=== PATIENT | male | born 1940 | race Caucasian/White ===

== ENCOUNTER → 2016-06-22 | Outpatient (CLI) | payer OTHER ==
[~2016-06-22] MED LIST: ASPI81TA28 PO; ATOR10TA88 PO; FINA5TAB PO; FLUO1TAB12 PO; GLUCTAB7 PO; LOSA1TAB PO; LOSA1TAB38 PO; METO25TA3 PO; METO25TA56 PO; OMEG10007 PO; OXYC-57 PO
== END | disposition home or self-care (01) ==
LOC: C.LAB 10:02
PROVIDERS: ATTEND Urology
DX: Z00.00 Encounter for general adult medical examination without abnormal findings (principal); R97.20 Elevated prostate specific antigen [PSA]

== ENCOUNTER 2016-07-07 05:11 | Day surgery (SDC) | payer OTHER ==
[2016-06-26 14:37] VITALS: BMI 25.0
--- NOTE | 2016-06-26 15:04 | PAT Medication Instructions ---
Service Date Jun 26, 2016. Current Home Medication List Aspirin (Aspirin Ec), 81 MG PO Q2D Atorvastatin (Lipitor), 10 MG PO QAM Finasteride (Proscar), 5 MG PO QAM Fish Oil ([place]-3), 1,200 MG PO QAM Tsipkiqckds-Jwejpuchooo-Ozx C- (Glucosamine Chondroitin), 1,000 MG PO QAM Losartan Potassium (Cozaar), 25 MG PO QAM Metoprolol Succinate (Toprol Xl), 25 MG PO QAM Medication Instructions For Your Scheduled Surgery - Check with surgeon/physics faculty member for instructions: Aspirin (Aspirin Ec), 81 MG PO Q2D (okay to continue per surgeon) - Hold the following medications starting 06/27/2016: Fish Oil ([place]-3), 1,200 MG PO QAM Ibwldmbyyoc-Zfqurvyrjuk-Yed C- (Glucosamine Chondroitin), 1,000 MG PO QAM - Hold the following medications the morning of surgery: Losartan Potassium (Cozaar), 25 MG PO QAM Finasteride (Proscar), 5 MG PO QAM - Take the following medications the morning of surgery with a sip of water: Metoprolol Succinate (Toprol Xl), 25 MG PO QAM Atorvastatin (Lipitor), 10 MG PO QAM If you have any questions please call us at [phone] (Awa Randolph PA-C) or [phone] or [phone]
--- NOTE | 2016-06-26 15:38 | DIAGNOSTIC IMAGING REPORT ---
CHEST PREADMISSION(PA/LAT) CLINICAL HISTORY: Preoperative evaluation. COMPARISON STUDY: Chest radiograph May 18, 2015. FINDINGS: Lung volumes are normal. There is no consolidation to suggest pneumonia. There is no pneumothorax or pleural effusion. Nodular densities projecting over the lower lungs likely reflect nipple shadows. Borderline cardiomegaly is unchanged. There is no evidence of pulmonary edema. IMPRESSION: 1. No acute findings. 2. Nodular densities projecting over each lower lung which likely reflect nipple shadows. However, follow-up PA and shallow oblique radiographs of the chest with nipple markers are recommended for confirmation. Electronically signed by: Keanu Altman M.D. 06/26/2016 3:36 PM Dictated Date/Time: 06/26/2016 3:34 PM
[2016-06-26 16:07] LABS: BASO % 0.3 %; BASO ABS # 0.03 K/uL (0-0.2); COMPLETE YES; EOS % 5.4 %; HEMATOCRIT 44.8 % (42-52); IG% 0.3 %; LYMPH % 20.9 %; LYMPH ABS # 1.89 K/uL (1.2-3.4); MEAN CELL VOLUME 90.1 fL (80-100); MEAN CORPUSCULAR HGB CONC 34.4 g/dl (32-36); MEAN PLATELET VOLUME 10.9 fL (7.4-10.4); MONO % 14.2 %; NEUT % 58.9 %; PLATELET COUNT 213 K/uL (130-400); RED BLOOD COUNT 4.97 M/uL (4.7-6.1); WHITE BLOOD COUNT 9.06 K/uL (4.8-10.8)
[2016-06-26 16:38] LABS: BUN/CREATININE RATIO 13.9 (10-20); CALCIUM 8.9 mg/dl (8.5-10.1); CREATININE 1.2 mg/dl (0.60-1.40); POTASSIUM 4.1 mmol/L (3.5-5.1)
[2016-07-07] VITALS (8 sets, daily range): BP systolic 117–178; BP diastolic 49–74; PULSE 51–76; TEMP 36.4–36.9; O2SAT 94–97; Ht 177.8 cm; Wt 81.3 kg
[~2016-07-07] VITALS: Ht 177.8 cm; Wt 81.3 kg
[~2016-07-07 05:11] MED LIST changes: +ATOR10TA82 PO; -ATOR10TA88 PO; -FLUO1TAB12 PO; -LOSA1TAB38 PO; -METO25TA56 PO; -OXYC-57 PO
[2016-07-07] MEDS ORDERED: LACTATED RINGER'S 1000ML 1,000 ML IV SCH ×2 (06:00→07:58)
--- NOTE | 2016-07-07 06:18 | History & Physical Bridge Note ---
H&P Re-Evaluation Bridge Note: I have examined the patient, reviewed the History & Physical and in the interval since the performance of the History & Physical I have noted the following changes of clinical significance: No changes noted pt marked, pt family will be here later
[2016-07-07] MEDS ORDERED: FENTANYL CITRATE INJ 50 MCG/1 ML 2 ML VIAL ONE (06:26)
[2016-07-07] MEDS ORDERED: LIDOCAINE HCL 2% 2 ML VIAL (20MG/ML) ONE ×2 (06:26→07:21)
[2016-07-07] MEDS ORDERED: PROPOFOL IV EMULSION 10 MG/ML 20 ML VIAL IV ONE ×2 (06:26→07:15)
[2016-07-07] MEDS ORDERED: MIDAZOLAM HCL 1 MG/ML 2ML VIAL ONE (06:26)
[2016-07-07] MEDS ORDERED: ONDANSETRON INJ 2 MG/ML 2 ML VIAL ONE (06:26)
[2016-07-07] MEDS ORDERED: DEXAMETHASONE SOD INJ 4 MG/ML VIAL ONE (06:26)
[2016-07-07] MEDS ORDERED: WATER, STERILE FOR INJ 10 ML VIAL ONE (06:35)
[2016-07-07] MEDS ORDERED: BUPIVACAINE 0.5 % 5 MG/1 ML MPF 30ML VIAL ONE (06:44)
[2016-07-07] MEDS ORDERED: BACITRACIN 50000 UNIT VIAL ONE (06:45)
[2016-07-07] MEDS ORDERED: METOPROLOL TARTRATE 1 MG/ML VIAL ONE (06:49)
[2016-07-07] MEDS ORDERED: CEFAZOLIN SOD 1 GM VIAL ONE (06:57)
[2016-07-07] MEDS ORDERED: EpHEDrine SULFATE 50MG/5ML SYR ONE (07:21)
[2016-07-07] MEDS ORDERED: ROCURONIUM BROMIDE 10 MG/ML 5 ML VIAL ONE (07:25)
[2016-07-07] MEDS ORDERED: GLYCOPYRROLATE INJ 0.2 MG/ML VIAL ONE (07:25)
[2016-07-07] MEDS ORDERED: NEOSTIGMINE METHYLSULFATE 5 MG/5 ML SYR ONE (07:25)
[2016-07-07] MEDS ORDERED: LACTATED RINGER'S 1000ML 1,000 ML IV PRN (07:42)
[2016-07-07] MEDS ORDERED: ONDANSETRON INJ 2 MG/ML 2 ML VIAL IV PRN ×2 (07:45→08:00)
[2016-07-07] MEDS ORDERED: FENTANYL CITRATE INJ 50 MCG/1 ML 2 ML VIAL IV PRN (07:45)
--- NOTE | 2016-07-07 07:54 | [facility] Post Operative Brief Note ---
Immediate Operative Summary Operative Date Jul 07, 2016. Pre-Operative Diagnosis left inguinal hernia Post-Operative Diagnosis left direct ing hernia and ? neuroma ileo inguinal nerve Procedure(s) Performed Left Open direct Inguinal Hernia Repair with Mesh(marlex) and excision ? neuroma Surgeon Dr. Woodward Dining Room Tables Set Up Attendant Surgeon(s) Julio Cesar Josue PA-C Estimated Blood Loss 3.5mL Findings large direct defect and clyde 1cm semi hard mass adjacent to ileoinguinal nerve Specimens A: possible neuroma from illeal inguinal nerve
[2016-07-07] MEDS ORDERED: OXYC-57 PO ×2 (07:55→08:06)
--- NOTE | 2016-07-07 07:58 | Discharge Instructions ---
Discharge Instructions Date of Service Jul 07, 2016. Visit Reason for Visit: Left Inguinal Hernia Discharge Discharge Diagnosis / Problem: left inguinal hernia repair with mesh Discharge Goals Goal(s): Decrease discomfort Activity Recommendations Activity Limitations: as noted below Lifting Limitations: no more than 10 pounds Shower/Bathe: tomorrow Driving or Machine Use: resume 3 days after discharge (if not taking Percocet) Anesthesia . Post Anesthesia Instructions: If you have had General Anesthesia or IV Sedation: * Do not drive today. * Resume driving when surgeon permits. * Do not make important decisions or sign legal documents today. * Call surgeon for: 1. Temperature elevations greater than 101 degrees F. 2. Uncontrollable pain. 3. Excessive bleeding. 4. Persistent nausea and vomiting. 5. Medication intolerance (nausea, vomiting or rash). * For nausea and vomiting use only clear liquids such as: tea, soda, bouillon until nausea subsides, then gradually increase diet as tolerated. * If you have any concerns or questions, call your surgeon's office. If physician is unavailable and it is an emergency, call 911 or go to the nearest emergency room. . Instructions / Follow-Up Instructions / Follow-Up Dr. Woodward in 1 week, call [phone] if you do not already have an appt or for any questions Ice left groin off and on alternating every 20 minutes until bedtime Diet Recommendations Recommended Home Diet: no limitations Procedures Procedures Performed: Left Open direct Inguinal Hernia Repair with Mesh(marlex) and excision ? neuroma Pending Studies Studies pending at discharge: no Medical Emergencies . Who to Call and When: Medical Emergencies: If at any time you feel your situation is an emergency, please call 911 immediately. . Non-Emergent Contact Non-Emergency issues call your: Surgeon Call Non-Emergent contact if: you have a fever, temperature is above 101.5, your pain is not controlled, wound has increased redness . . "Provider Documentation" section prepared by Julio Cesar Josue.
[2016-07-07] MEDS ORDERED: OXYCODONE/ACETAMINOPHEN 5-325 TAB PO PRN (08:00)
[2016-07-07] MEDS ORDERED: MoRPHine SULFATE 2 MG/ML CARP IV PRN (08:00)
--- NOTE | 2016-07-07 08:32 | Anesthesiology Progress Note ---
Anesthesia Post Op Note Date & Time Jul 07, 2016 at 08:30 Vital Signs Pain Intensity: 0 Vital Signs Past 12 Hours Date Time Temp Pulse Resp B/P Pulse Ox O2 Delivery O2 Flow Rate FiO2 07/07/16 08:25 62 16 129/62 98 Room Air 07/07/16 08:15 61 16 128/60 100 Mask 10 07/07/16 08:05 65 16 130/65 100 Mask 10 07/07/16 07:58 36.7 80 16 155/69 100 Mask 10 07/07/16 05:48 36.9 59 18 134/64 95 Room Air Notes Mental Status: alert / awake / arousable, participated in evaluation Pt Amnestic to Procedure: Yes Nausea / Vomiting: adequately controlled Pain: adequately controlled Airway Patency, RR, SpO2: stable & adequate BP & HR: stable & adequate Hydration State: stable & adequate Anesthetic Complications: no major complications apparent Pt doing well. He says he feels a little hoarse (which I reassured him is normal ) but otherwise well.
--- NOTE | 2016-07-07 09:28 | OPERATIVE REPORT ---
DATE OF OPERATION: 07/07/2016 SURGEON: Kashmir Woodward MD PROTOTYPE SPECIAL BUILD: Julio Cesar Josue PA-C PREOPERATIVE DIAGNOSIS: Left inguinal hernia. 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 PROCEDURE: Left direct inguinal hernia repair with Marlex mesh tension free and excision of 1 cm mass along the ilioinguinal nerve, questionable neuroma. DESCRIPTION OF PROCEDURE: The patient was brought into the operating room theater under general anesthesia and the left lower quadrant was prepped with Betadine scrubbing solution and properly draped. A 0.5% Marcaine without epinephrine was used to infiltrate the skin wheel 2 fingerbreadths medial anterior superior iliac crest and more local was used subfascially to the external oblique. An incision was made parallel to the external oblique deep to the inguinal ligament, deepened through subcutaneous tissue. Some larger venous plexus were ligated with 2-0 silk. We went onto the external oblique were more local was used and we opened the external oblique along the course of its fibers of the external ring. As we elevated hemostats, were able to identify a significant amount of scar tissue of the external ring. We identified the ilioinguinal nerve and it seemed to be having a neuroma just adjacent to it about almost a centimeter mass. It was hard to tell if it was a neuroma from that or just a scar tissue, but we would excise this and sent it separately. The nerve was left intact. We then elevated the cord and its structures and identified a significant direct hernia. We freed that up from the cord structures, placed the cord over a Lupton drain. We then inspected the floor. There was another nerve coming adjacent superiorly and whether or not it was iliohypogastric as a fine band we avoided it. We used 3 interrupted silk sutures. We approximated some fibers of the transversalis fascia to reduce this protuberances of the direct area which extended into the field about 5-6 cm throughout the whole area. This just to get it out away, we identified easily the inferior epigastric vessels and there was no indirect hernia or lipoma. At this point, a sheet of Marlex mesh was then brought up on the field and onlaid. It sutured around the symphysis pubis, shelving portion of the inguinal ligament above the conjoined tendon to reconstruct the internal ring after we placed the 2 nerves along the cord structures that could only accommodate the tip of a hemostat. More local was used and antibiotic topically. When hemostasis was satisfactory, we then closed the external oblique on top of the cord and the mesh completely exteriorizing the mesh from subcutaneous tissue and subQ was closed with 0 Dexon and nina for skin edges. Dressing was applied. The procedure was tolerated well by the patient. Estimated blood loss was approximately 3.5 mL. The patient was taken to recovery room in good condition. I attest to the content of the Intraoperative Record and any orders documented therein. Any exceptio ns are noted below.
== END 2016-07-07 15:35 | disposition home or self-care (01) ==
LOC: C.ACU 05:11
PROVIDERS: ATTEND Surgery
DX: K40.90 Unilateral inguinal hernia, without obstruction or gangrene, not specified as recurrent (principal); I10 Essential (primary) hypertension; I71.4 Abdominal aortic aneurysm, without rupture; F17.200 Nicotine dependence, unspecified, uncomplicated; E78.00 Pure hypercholesterolemia, unspecified; Z79.899 Other long term (current) drug therapy; Z79.82 Long term (current) use of aspirin; Z90.89 Acquired absence of other organs; Z98.42 Cataract extraction status, left eye; Z98.890 Other specified postprocedural states; Z85.828 Personal history of other malignant neoplasm of skin; Z68.25 Body mass index [BMI] 25.0-25.9, adult; Z84.1 Family history of disorders of kidney and ureter; Z82.49 Family history of ischemic heart disease and other diseases of the circulatory system; Z82.0 Family history of epilepsy and other diseases of the nervous system; Z83.3 Family history of diabetes mellitus

== ENCOUNTER → 2016-08-04 | Outpatient (CLI) | payer OTHER ==
[~2016-08-04] MED LIST changes: +OXYC-57 PO
[2016-08-04 13:24] LABS: BLOOD UREA NITROGEN 17 mg/dl (7-18); BUN/CREATININE RATIO 15.3 (10-20)
== END | disposition home or self-care (01) ==
LOC: C.LAB 10:52
PROVIDERS: ATTEND Urology
DX: R97.20 Elevated prostate specific antigen [PSA] (principal)

== ENCOUNTER → 2016-08-27 | Outpatient (CLI) | payer OTHER | END | disposition home or self-care (01) | LOC: C.LABSPEC 17:10 | PROVIDERS: ATTEND Urology | DX: N40.1 Benign prostatic hyperplasia with lower urinary tract symptoms (principal); R31.0 Gross hematuria ==

== ENCOUNTER → 2016-09-08 | Outpatient (CLI) | payer OTHER | END | disposition home or self-care (01) | LOC: C.LAB 10:44 | PROVIDERS: ATTEND Nurse Practitioner Family | DX: N39.0 Urinary tract infection, site not specified (principal) ==

== ENCOUNTER → 2016-10-12 | Outpatient (CLI) | payer OTHER ==
[~2016-10-12] MED LIST changes: -ATOR10TA82 PO; +ATOR10TA88 PO
== END | disposition home or self-care (01) ==
LOC: C.LAB 11:24
PROVIDERS: ATTEND Urology
DX: R33.9 Retention of urine, unspecified (principal); N39.0 Urinary tract infection, site not specified

== ENCOUNTER → 2016-12-01 | Outpatient (CLI) | payer OTHER | END | disposition home or self-care (01) | LOC: C.LAB 09:35 | PROVIDERS: ATTEND Urology | DX: R31.0 Gross hematuria (principal); N39.0 Urinary tract infection, site not specified ==

== ENCOUNTER → 2017-03-11 | Outpatient (CLI) | payer OTHER ==
[~2017-03-11] MED LIST changes: +ATOR10TA82 PO; -ATOR10TA88 PO; -OXYC-57 PO
== END | disposition home or self-care (01) ==
LOC: C.LAB 12:58
PROVIDERS: ATTEND Urology
DX: N40.1 Benign prostatic hyperplasia with lower urinary tract symptoms (principal); R33.9 Retention of urine, unspecified

== ENCOUNTER 2017-04-01 17:10 | Emergency (ER) | payer OTHER ==
[~2017-04-01] VITALS: Ht 177.8 cm; Wt 83.3 kg
[~2017-04-01 17:10] MED LIST changes: -ASPI81TA28 PO; -GLUCTAB7 PO; -METO25TA3 PO; -OMEG10007 PO
[2017-04-01 17:36] VITALS: BP 152/74; TEMP 36.5; Ht 177.8 cm; Wt 83.3 kg
[2017-04-01] MEDS ORDERED: GELATIN SPONGE 12-7MM EXT STA (17:50)
--- NOTE | 2017-04-01 18:06 | EMERGENCY ROOM VISIT NOTE ---
ED Visit Note First contact with patient: 17:38 Patient seen and examined at bedside after discussion with the physician hearing and speech assistant. No recurrent bleeding of the right earlobe. Scuffs with patient symptoms watch and return for, he verbalized understanding was agreeable with plan.
--- NOTE | 2017-04-01 18:30 | EMERGENCY ROOM VISIT NOTE ---
ED Visit Note First contact with patient: 17:38 Chief Complaint:"lacerated L ear shaving" History of Present Illness: This patient is a 76 year old male who presents to the Emergency Department via private vehicle with male for evaluation of their left ear lobe laceration. Patient sustained the laceration while shaving today. They report a moderate amount of bleeding initially. He believes his tetanus is up-to-date. He notes no dizziness or feeling as though he is going to pass out. He could not get the bleeding to stop therefore propping his visit here today. This occurred 1.5 hours prior to arrival. Medications: As noted below Allergies: Scallops PMH: No pertinent SHx: Patient lives locally. ROS: All pertinent positive and negative review of systems are appropriately documented in the History of Present Illness. Physical Exam: VITAL SIGNS - Vital signs and nursing notes were reviewed. Hypertensive. GENERAL -76-year-old male appearing his stated age who is in no acute distress. Communicates well with provider and answers questions appropriately. SKIN - There is a punctate skin avulsion noted to the left ear lobe. No suturable ailment. ED Course: Patient was seen and evaluated by myself. Risks and benefits of performing primary wound closure versus no repair were discussed with the patient who verbalizes understanding. Gelfoam was initially applied without hemostasis. Then after gently clean the area I did apply Dermabond. This achieved hemostasis. He was observed for one half hour and there was no continued bleeding. He appears stable for outpatient management. He was educated upon management, educated upon worrisome symptoms which to return, had questions and provided discharge, and was discharged home in good condition. BP high. I believe to be situational. Med list reviewed. Problem List Medical Problems: (1) Aortic insufficiency Status: Chronic Current/Historical Medications Scheduled Aspirin (Aspirin Ec), 81 MG PO Q2D Atorvastatin (Lipitor), 10 MG PO QAM Finasteride (Proscar), 5 MG PO QAM Fish Oil (Cap[place]-3), 1,200 MG PO QAM Esvlwbkxguu-Pysadtnfrda-Atq C- (Glucosamine Chondroitin), 1,000 MG PO QAM Losartan Potassium (Losartan Potassium), 50 MG PO DAILY Metoprolol Succinate (Toprol Xl), 25 MG PO QAM Allergies Coded Allergies: NO KNOWN DRUG ALLERGIES (Verified Allergy, Unknown, NONE, 07/07/16) Scallop (Verified Allergy, Unknown, NAUSEA AND VOMITING, 1/4/18) Vital Signs Date Time Temp Pulse Resp B/P (MAP) Pulse Ox O2 Delivery O2 Flow Rate FiO2 04/01/17 18:37 63 18 95 04/01/17 17:36 36.5 68 16 152/74 98 Room Air Medications Administered Medications (Trade) Dose Ordered Sig/Byron Route Start Time Stop Time Status Last Admin Dose Admin Gelatin (Surgifoam Sponge 12-7MM (SMALL)) 1 ea NOW STAT EXT 04/01/17 17:50 04/01/17 17:51 DC 04/01/17 17:50 1 EA Departure Information Impression Primary Impression: Laceration Dispostion Home / Self-Care Condition GOOD Referrals No Doctor, Assigned (PCP) Patient Instructions My [facility] Additional Instructions Discharge Instructions: You may shower with the glue but please do not submerge in water until healed ( 7 days) Look for signs of infection of the wound including: increased pain, swelling, foul discharge, streaking, or increased temperature. If any of these are noticed you should return to the Emergency Department for further assessment and treatment. As with any laceration you may have received nerve damage to the surrounding tissues. This damage may or may not be permanent. You should keep the area covered with sunscreen for the first 6 months to 1 year when at risk for exposure to help minimize scarring. You can also use scar reducing creams or Vitamin E oil to help minimize scarring. Return to the emergency department if your symptoms worsen despite treatment course outlined above.
[2017-04-01 18:37] VITALS: PULSE 63; O2SAT 95
[2017-08-23] MEDS ORDERED: ASPI81TA28 PO (14:26)
[2017-08-23] MEDS ORDERED: METO25TA4 PO (14:35)
[2017-08-23] MEDS ORDERED: OMEG10007 PO (14:35)
[2017-08-23] MEDS ORDERED: CZR50 PO (18:13)
[2017-08-23] MEDS ORDERED: PRS5 PO (19:11)
[2017-08-23] MEDS ORDERED: LPT10 PO (19:11)
[2017-08-23] MEDS ORDERED: GLUCTAB7 PO (19:44)
== END 2017-04-01 18:38 | disposition home or self-care (01) ==
LOC: C.EDB 17:11 → C.EDD 18:38
DX: S01.312A Laceration without foreign body of left ear, initial encounter (principal); W45.8XXA Other foreign body or object entering through skin, initial encounter; I35.1 Nonrheumatic aortic (valve) insufficiency; Z79.82 Long term (current) use of aspirin; Z79.899 Other long term (current) drug therapy; Z91.018 Allergy to other foods

== ENCOUNTER → 2017-04-06 | Outpatient (CLI) | payer OTHER ==
[~2017-04-06] MED LIST changes: +ASPI81TA28 PO; +CZR50 PO; +GLUCTAB7 PO; -LOSA1TAB PO; +METO25TA3 PO; +OMEG10007 PO
== END | disposition home or self-care (01) ==
LOC: C.LABSPEC 11:04
PROVIDERS: ATTEND Urology
DX: N39.0 Urinary tract infection, site not specified (principal); R33.9 Retention of urine, unspecified

== ENCOUNTER → 2017-07-02 | Outpatient (CLI) | payer OTHER ==
[~2017-07-02] MED LIST changes: -METO25TA3 PO; +METO25TA4 PO
[2017-07-02 10:08] LABS: BLOOD UREA NITROGEN 19 mg/dl (7-18); CARBON DIOXIDE 30 mmol/L (21-32); GLUCOSE 77 mg/dl (70-99); POTASSIUM 4.2 mmol/L (3.5-5.1); SODIUM 137 mmol/L (136-145)
[2017-07-02 10:11] LABS: CHOLESTEROL 158 mg/dl (0-200); LDL CHOLESTEROL CALCULATED 87 mg/dl
== END | disposition home or self-care (01) ==
LOC: C.LAB 08:56
PROVIDERS: ATTEND Student in an Organized Health Care Education/Training Program
DX: E78.5 Hyperlipidemia, unspecified (principal); I25.10 Atherosclerotic heart disease of native coronary artery without angina pectoris; I10 Essential (primary) hypertension; R82.71 Bacteriuria

== ENCOUNTER 2021-05-21 05:53 | Inpatient (IN) ==
--- NOTE | 2021-05-15 11:51 | PAT Medication Instructions ---
Medication Instructions Date of Service May 15, 2021 Home Medications atorvastatin 40 mg tablet 40 mg PO HS losartan 50 mg tablet 12.5 mg PO QAM metoprolol succinate 25 mg tablet,extended release 24 hr 25 mg PO QPM hydroxyzine HCl 25 mg tablet 25 - 50 mg PO Q8H PRN paroxetine HCl 10 mg tablet 5 mg PO HS acetaminophen 500 mg tablet 500 mg PO Q6H PRN amlodipine 5 mg tablet 5 mg PO QPM DO NOT take the morning of surgery losartan 50 mg tablet 12.5 mg PO QAM Take morning of surgery With a small sip of water, OTHERWISE NOTHING TO EAT OR DRINK AFTER MIDNIGHT: hydroxyzine HCl 25 mg tablet 25 - 50 mg PO Q8H PRN(if needed) acetaminophen 500 mg tablet 500 mg PO Q6H PRN(okay to take up to 4 hours prior to surgery if needed) Take evening before surgery atorvastatin 40 mg tablet 40 mg PO HS metoprolol succinate 25 mg tablet,extended release 24 hr 25 mg PO QPM hydroxyzine HCl 25 mg tablet 25 - 50 mg PO Q8H PRN(if needed) paroxetine HCl 10 mg tablet 5 mg PO HS acetaminophen 500 mg tablet 500 mg PO Q6H PRN(if needed) amlodipine 5 mg tablet 5 mg PO QPM Other Notes If you have any questions please call us at [phone] or [phone] or [phone] or [phone]
--- NOTE | 2021-05-19 09:10 | Anesthesiology Consultation ---
Date of Service May 19, 2021 Assessment & Plan (1) Encounter for pre-operative examination: - Case discussed with Dr. Mariee who advised patient is acceptable risk to proceed with surgery. - COVID screening: Per assessment on 05/19/2021: Travel screen negative, no known COVID-19 positive contacts or current COVID-19 related symptoms in past 2 weeks. Patient vaccinated. COVID test obtained at PAT appointment today. Chart Review Chart Review: Acceptable Risk for Surgery and Patient seen in Pre Admission Testing Teaching & Discussion Pre-Anesthesia Teaching/Discussion Notes: Instructed NPO after midnight before surgery, except medications with 15 cc of water. Medication instructions provided according to the [facility] guidelines. History Surgery Operation Date: 05/21/21 07:30 Proposed Procedures p Percutaneous Endovascular Aneurysm Repair - Michael Buchanan MD Height/Weight Height: 5 ft 9 in Weight: 79.2 kg Allergies Allergy/AdvReac Type Severity Reaction Status Date / Time No Known Drug Allergies Allergy Unknown NONE Verified 05/14/21 11:08 scallops AdvReac Unknown NAUSEA AND Verified 05/14/21 11:08 VOMITING Medications Home Medications Medication Instructions Recorded Confirmed Last Taken atorvastatin 40 mg tablet 40 mg PO HS 05/09/18 05/14/21 11/24/19 losartan 50 mg tablet 12.5 mg PO QAM 05/09/18 05/14/21 11/24/19 metoprolol succinate 25 mg 25 mg PO QPM 05/09/18 05/14/21 11/25/19 tablet,extended release 24 hr hydroxyzine HCl 25 mg tablet 25 - 50 mg PO Q8H PRN 11/25/19 05/14/21 11/23/19 paroxetine HCl 10 mg tablet 5 mg PO HS 11/25/19 05/14/21 11/24/19 acetaminophen 500 mg tablet 500 mg PO Q6H PRN 05/14/21 05/14/21 Unknown amlodipine 5 mg tablet 5 mg PO QPM 05/14/21 05/14/21 Unknown Past Medical History Medical History (Updated 05/19/21 @ 15:22 by Elodia Burgess PA-C) Abdominal aortic aneurysm 5.1x5.8 cm Aortic insufficiency 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 Exercise / Class Metabolic Activity II 4-5 Yardwork/Stairs/Walk up hill (denies CP or SOB with 1 FOS) Past Family History Family History Mother Family history of diabetes mellitus Past Surgical History Surgical History 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 05/12/2018: Grade 1 view, MAC#3, ETT#8.0. No postop issues per anesthesia progress note. History of open reduction and internal fixation (ORIF) procedure LEFT SHOULDER Hx of transurethral resection of prostate WITH LASER Past Anesthesia History No Hx of Anesthesia Complications and No Family Hx of Anesthesia Complications History of PONV No Hx of PONV and No Hx of Motion Sickness Social History Smoking Status: Current every day smoker tobacco type: cigars Smoking cigarettes per day: SMALL CIGARS 5 PER DAY Do You Dip or Chew Tobacco: No Hx Alcohol Use: Yes Alcohol type: beer Alcohol Intake Frequency Comment: 1 X A MONTH Hx Substance Use: No substance use type: does not use Review of Systems Rare, chronic, palpitations, denies change or worsening. Patient denies chest pain, shortness of breath, dyspnea on exertion, snoring, witnessed apneas, reflux, fever, chills, cough, or wheezing. Physical Exam Vital Signs Vitals BP 154/61 P 57 TEMP 98.0 SP02 98% on RA RESP 17 Physical Full cervical extension range of motion without pain Full TMJ range of motion TMD 3.5 finger breaths Mallampati Score 3 Dentition: intact, partial-upper sides bilat; denies chipped or loose teeth Lungs: normal respiratory effort. Clear throughout to auscultation, no adventitious breath sounds Cardiac: regular rate and rhythm, no murmurs noted Carotid arteries: negative bruit bilat Extremities: no distal extremity edema Lab Results Anesthesia Preop Results Results Anesthesia Widget: WBC 7.28 K/uL (4.8-10.8) 05/19/21 Hgb 14.4 g/dL (14.0-18.0) 05/19/21 Hct 43.4 % (42-52) 05/19/21 Plt 206 K/uL (130-400) 05/19/21 Na 138 mmol/L (136-145) 05/19/21 K 4.6 mmol/L (3.5-5.1) 05/19/21 Cl 107 mmol/L (98-107) 05/19/21 CO2 29 mmol/L (21-32) 05/19/21 BUN 21 mg/dl (6-23) 05/19/21 Creat 0.97 mg/dl (0.6-1.4) 05/19/21 Glucose Level 80 mg/dl (70-99(Fasting)) 05/19/21 PT 10.6 Seconds (9.0-12.0) 05/19/21 PTT 29.5 Seconds (21.0-31.0) 05/19/21 INR 1.0 (0.9-1.1) 05/19/21 Blood Type O Positive 05/19/21 Antibody Screen NEGATIVE 05/19/21 Testing Electrocardiogram Date: 05/19/21 sinus bradycardia, rate 54 bpm LVH with QRS widening when compared with 2019 EKG, PVCs are no longer present Chest X-Ray Date: 05/19/21 FINDINGS: Lung volumes are normal. Lungs are clear. There is no pneumothorax or pleural effusion. Mild cardiomegaly is unchanged. Tortuosity of the descending thoracic aorta is unchanged. There is no evidence for pulmonary edema. IMPRESSION: No acute cardiopulmonary findings. No change in appearance of the chest. Echocardiogram Date: 09/13/20 EF 65% Mildly dilated left ventricle Normal LV systolic function with no regional wall motion abnormalities Basal asymmetric septal hypertrophy of the elderly Grade I diastolic dysfunction Dilated aortic root (4.1 cm) and ascending aorta (4.8 cm) Other Testing Abdomen/pelvis CTA 04/22/2021 IMPRESSION: 1. There is a 5.1 x 5.8 cm aneurysm of the infrarenal abdominal aorta as detailed above. 2. 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 3. The major branches of the abdominal aorta are widely patent. Note that the inferior mesenteric artery arises directly from the aneurysm sac. 4. Cardiomegaly and emphysema. 5. An 8 mm indeterminant hypodensity arises from the lower pole of the right kidney. This may demonstrate postcontrast enhancement. A 6 month follow-up contrast enhanced renal protocol CT or MRI is recommended for assessment. 6. Additional findings as above. (detailed report in imaging)
[2021-05-21] MEDS ORDERED: LACTATED RINGER'S 1,000 ML IV SCH ×2 (06:00→11:17)
[2021-05-21] MEDS ORDERED: ceFAZolin 1000MG 1,000 MG/7.5 ML SYR IV SCH (06:00)
[2021-05-21] MEDS ORDERED: ALBUMIN HUMAN 5% 12.5 GM/250 ML VIAL IV ONE (06:54)
[2021-05-21] MEDS ORDERED: SUGAMMADEX SODIUM 200 MG/2 ML VIAL IV ONE (06:55)
[2021-05-21] MEDS ORDERED: fentaNYL citrate 100 MCG/2 ML VIAL ONE ×2 (07:06→09:32)
--- NOTE | 2021-05-21 07:39 | History & Physical Report ---
Date of Service May 21, 2021 Assessment & Plan (1) AAA (abdominal aortic aneurysm) without rupture: Plan: Patient for a PEVAR repair of his AAA. I have discussed the risks options and benefits of the procedure with the patient. The patient understands the risks options and benefits and agrees to the procedure. History of Present Illness Chief Complaint: AAA Primary Care Provider: Randell Valdes DO Mr. Davalos is an elderly male who presents to Dr. Buchanan's vascular surgery clinic as a new patient in consultation for an abdominal aortic aneurysm which is 5.2 cm in size. Patient states that he has been undergoing regular ultrasound evaluations of this for some time, and was told that he had increased to a point that it may need surgical repair. Patient has a history of hypertension, hypercholesterolemia, kidney stones, palpitations, and a "leaking heart valve." Patient denies any fever, chills, chest pain, shortness of breath, headaches, cough, abdominal pain, nausea, vomiting, rest pain, claudication, nonhealing wounds or ulcers, other concerns. Allergies Allergy/AdvReac Type Severity Reaction Status Date / Time No Known Drug Allergies Allergy Unknown NONE Verified 05/21/21 06:07 scallops AdvReac Unknown NAUSEA AND Verified 05/21/21 06:07 VOMITING Home Medications Medication Instructions Recorded Confirmed Type atorvastatin 40 mg tablet 40 mg PO HS 05/09/18 05/21/21 History losartan 50 mg tablet 12.5 mg PO QAM 05/09/18 05/21/21 History metoprolol succinate 25 mg 25 mg PO QPM 05/09/18 05/21/21 History tablet,extended release 24 hr hydroxyzine HCl 25 mg tablet 25 - 50 mg PO Q8H PRN 11/25/19 05/21/21 History paroxetine HCl 10 mg tablet 5 mg PO HS 11/25/19 05/21/21 History acetaminophen 500 mg tablet 500 mg PO Q6H PRN 05/14/21 05/21/21 History amlodipine 5 mg tablet 5 mg PO QPM 05/14/21 05/21/21 History Past Med/Surg History Medical History Abdominal aortic aneurysm 5.1x5.8 cm Aortic insufficiency 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 05/12/2018: Grade 1 view, MAC#3, ETT#8.0. No postop issues per anesthesia progress note. History of open reduction and internal fixation (ORIF) procedure LEFT SHOULDER Hx of transurethral resection of prostate WITH LASER Family History Mother Family history of diabetes mellitus Social History Smoking Status: Current every day smoker Cigarettes Per Day: QUIT CIGS 1970/SMALL CIGARS 5 A DAY; Second Hand Exposure: No; Do You Dip or Chew Tobacco: No; Hx Alcohol Use: No Hx Substance Use: No Preferred Language: Latvian Communication Ability: Effective Hearing Ability: Use of Hearing Aid Process Controller Required: No Beliefs That Will Affect Care: None Current Living Situation: Spouse current occupational status: retired Other Information That Helps Us Care for You: No Feels Safe at Home: Yes Safety Concerns: Feels Safe At This Time Assistive Devices: Denture - Upper, Glasses and Hearing Aid - Bilateral Assistive Devices Comment: PARTIAL Review of Systems All systems reviewed & are unremarkable except as noted in HPI & below Physical Exam Physical Exam: Constitutional: In general patient is a healthy-appearing well- nourished developed elderly male in no distress. He is alert and oriented without any deficits. His head is normocephalic and atraumatic. Neck is nontender with a midline trachea. His carotids do not demonstrate a bruit. Heart is regular with a systolic murmur. Clear throughout. Abdomen is soft and nontender with normoactive bowel sounds in all 4 quadrants. His pulsatile mass is appreciable measuring about 5 cm. Brachial radial and femoral pulses are +3. Right posterior tibialis +2, right DP is +3. Left DP and PT are +2. He has brisk capillary refill and no sign of distal ischemia. There is no edema Results & Data ([facility]) Vital Signs (Past 12 Hours) Vital Signs Temp Pulse Resp BP Pulse Ox 05/21/21 06:15 36.7 C 63 18 160/65 H 98
[2021-05-21] MEDS ORDERED: ONDANSETRON INJ 2 MG/ML 2 ML VIAL ONE (08:51)
[2021-05-21] MEDS ORDERED: ROCURONIUM BROMIDE 10 MG/ML 5 ML VIAL IV ONE (08:51)
[2021-05-21] MEDS ORDERED: LIDOCAINE 2% 2 ML VIAL/AMP(20MG/ML) INFIL ONE (08:51)
[2021-05-21] MEDS ORDERED: DEXAMETHASONE SOD INJ 4 MG/ML VIAL ONE (08:51)
[2021-05-21] MEDS ORDERED: PROPOFOL IV EMULSION 10 MG/ML 20 ML VIAL IV ONE (08:51)
[2021-05-21] MEDS ORDERED: HEPARIN SOD (PORCINE) 1000 UNIT/ML ONE (08:51)
[2021-05-21] MEDS ORDERED: ePHEDrine sulfate 50 MG/ML AMP ONE (09:01)
[2021-05-21] MEDS ORDERED: ARISTA ABSORBABLE HEMOSTAT 3GM TOP ONE (09:41)
[2021-05-21] MEDS ORDERED: VISIPAQUE IV PRN (09:41)
--- NOTE | 2021-05-21 09:54 | Procedure Note ---
Angiogram Post Procedure Fluoroscopy Time (minutes): 10.2 Radiation (mGy): 233 Contrast: 190 Post Operative Report Pre & Post Diagnosis Operation Date: 05/21/21 08:00 Pre-Op Diagnosis: Abdominal Aortic Aneurysm Post-Op Diagnosis: Abdominal Aortic Aneurysm I identified the patient and participated in the time-out.: Yes Procedure Operation Date: 05/21/21 08:00 Actual Procedures p Percutaneous Endovascular Repair of Abdominal Aortic Aneurysm, Mechanical Closure of Bilateral Femoral Arteries(Bilateral) - Michael Buchanan MD Surgeon Michael Buchanan MD Pharmacy Student none Estimated Blood Loss 120 Findings Consistent with Post-Op Diagnosis Specimens none Anesthesia Type General Complications none Disposition Accompanied Patient To Recovery: No Disposition: Recovery Room Indications The patient is a 72-year-old male with an enlarging abdominal aortic aneurysm. Endovascular repair is recommended. I have discussed the risks options and benefits of the procedure with the patient. The patient understands the risks options and benefits and agrees to the procedure. Description of Procedure The patient was taken to the operating room and placed in the supine position. After general anesthesia was accomplished the groins were prepped and draped in a sterile manner. The patient was identified and a timeout was performed. Percutaneous punctures were made to both common femoral arteries and 5 [place]ar[place]uan sheaths were inserted bilaterally. Injections were then done in both sides to confirm that the punctures were in the common femoral artery proper. Once this was completed two Pro-glide closure devices were placed in each groin, 1 at 10:00 and 1 at the 2 o'clock position. The arteries were preclosed with this device. Once they were in place, 8 [place]araguan sheaths were inserted. We then inserted 035 guidewires through both sheaths into the abdominal aorta. Once they were placed suprarenal using Kumpe catheters the wires were exchanged to Tommy wires. We then pulled the sheath in the left groin and replaced it with a 14 [place]araguan dry seal sheath. On the right side once the wire was exchanged to a Gonzalez wire we exchanged the 8 [place]araguan sheath to an 18 [place]araguan dry seal after dilating with a 12 Nicaraguan dilator. A pigtail was inserted through the left groin. This was placed suprarenally. Arteriography was performed marking the renal arteries. The left renal artery was lower than the right. Through the right groin we inserted a 28.5 x 14.5 x 12 C3 trunk excluder device. This was deployed just below the renal arteries. Another injection was done confirming that the top of the graft was just at the renal artery level. Once this was confirmed the pigtail was pulled down into the sac and the hooks were released from the graft. Using a Kumpe catheter and an 035 glidewire, the gate was cannulated. The kumpe was passed up into the shaft of the graft. It spun easily. We then exchanged the 035 wire to a Gonzalez wire and inserted the marker pigtail. The 12 Nicaraguan sheath was pulled down to the distal common iliac artery and a hand-injection was performed. The bifurcation of the common iliac was marked. The distance was measured from the gate to the bifurcation. We decided use a 20x11.5 contralateral limb. The pigtail was removed. The 12 Nicaraguan dilator was reinserted and the 12 Nicaraguan sheath inserted up into the gate. Dilator was removed. We the contra limb into the 12 Nicaraguan sheath. The 12 Nicaraguan sheath was then pulled down below the graft and the graft deployed. The right ipsilateral limb was then deployed and the device removed from the right side. The 18 Nicaraguan sheath was then injected and the common iliac artery bifurc ation marked. We then inserted a 20x9.5 extension on the ipsiside as a distal extension. This was deployed without difficulty and landed just above the common iliac artery bifurcation. Once this was completed we used the Q50 balloon to dilate the overlaps and attachment sites. The contralateral limb was done first followed by the ipsilateral side. Once this was completed the pigtail was reinserted. Another completion injection was performed which showed a small type I endoleak. We decided to place a proximal extension cuff using the comformable device. A 28.5x4.5 proximal cuff was inserted. This was deployed without difficulty. The graft allowed her to sit nicely in the aorta just below the renals down to just above the flow divider. The cuff was then ballooned with a Q50 balloon. We then passed the pigtail up to the suprarenal aorta another completion aortogram was performed. This showed the graft itself is widely patent with good flow. There was no longer had any type I endoleak present. At that point though the 035 wire was reinserted and the pigtail removed. Then closed the puncture sites on the 12 Nicaraguan side first followed by the 18 Nicaraguan side. Adequate hemostasis was noted of both punctures. Marianna was placed in the puncture sites. Pressure dressings were applied to both groins.The patient left the operation room in satisfactory condition and tolerat ed the procedure well. All needle and sponge counts were correct at the end of the procedure. I attest to the content of the Intraoperative Record and any orders documented therein. Any exceptions are noted below.
--- NOTE | 2021-05-21 09:55 | Post Operative Brief Note ---
Immediate Post Op Note v1 Date of Surgery May 21, 2021 Pre & Post Diagnosis Operation Date: 05/21/21 08:00 Pre-Op Diagnosis: Abdominal Aortic Aneurysm Post-Op Diagnosis: Abdominal Aortic Aneurysm I identified the patient and participated in the time-out.: Yes Procedure Operation Date: 05/21/21 08:00 Actual Procedures p Percutaneous Endovascular Repair of Abdominal Aortic Aneurysm, Mechanical Closure of Bilateral Femoral Arteries(Bilateral) - Michael Buchanan MD Surgeon Michael Buchanan MD Antichecking Iron Worker none Estimated Blood Loss 120 Findings Consistent with Post-Op Diagnosis Drains Moon Catheter Anesthesia Type General Complications none Disposition Accompanied Patient To Recovery: No Disposition: Recovery Room
--- NOTE | 2021-05-21 10:01 | Anesthesia Procedure Note ---
Anesthesia Procedure Note Arterial Line Note Date of procedure: 05/21/21 Consent: Risk / Benefits Reviewed With: Informed Consent Obtained Monitors attached: Blood Pressure, CO2, EKG and Pulse Oximetry Oxygen delivery method: ETT Time out completed: Yes Premedication: General anesthesia Laterality: Left Location: Radial Hand hygeine: Alcohol based hand rub Equipment/Supplies: Sterile gloves and Sterile drapes Skin prep: Chloraprep Ultrasound used: No Attempts: 2 Procedure Summary: 20 g arrow to find artery - attempted wire but wouldn't thread - repositioned arrow - wired in without difficulty - good wave - no hematoma Post-Procedure: Pt hemodynamically stable
[2021-05-21 10:39] LABS: Hematocrit (blood only) 38.1 % (42-52); Hemoglobin 12.6 g/dL (14.0-18.0)
[2021-05-21] MEDS ORDERED: ATROPINE SULFATE 0.1 MG/ML 10ML SYR IV PRN (11:09)
[2021-05-21] MEDS ORDERED: ONDANSETRON INJ 2 MG/ML 2 ML VIAL IV PRN (11:09)
[2021-05-21] MEDS ORDERED: fentaNYL citrate 100 MCG/2 ML VIAL IV PRN (11:09)
--- NOTE | 2021-05-21 11:09 | Anesthesiology Progress Note ---
Date of Service May 21, 2021 Anesthesia Post Procedure Vital Signs Vital Signs: Temp Pulse Pulse Resp BP Pulse Ox 05/21/21 10:50 36.4 C L 54 L 12 128/59 L 99 05/21/21 10:40 61 16 129/53 L 98 05/21/21 10:30 66 16 136/55 L 95 05/21/21 10:20 58 L 16 129/58 L 100 05/21/21 10:10 60 16 139/61 100 05/21/21 10:01 36.3 C L 74 16 156/67 H 100 05/21/21 06:15 36.7 C 63 18 160/65 H 98 Transfer of Care Handoff Completed per policy Notes Mental Status: alert / awake / arousable Patient Amnestic to Procedure: Yes Nausea / Vomiting: adequately controlled Pain: adequately controlled Airway Patency, RR, SpO2: stable & adequate BP & HR: stable & adequate Hydration State: stable & adequate Anesthetic Complications: no major complications apparent
[2021-05-21] MEDS ORDERED: MoRPHine SULFATE 4 MG/ML 1 ML CARP\\VIAL IV PRN (11:17)
[2021-05-21] MEDS ORDERED: hydrOXYzine HCl 25 MG TAB PO PRN (11:17)
[2021-05-21] MEDS ORDERED: oxyCODONE/ACETAMINOPHEN 5mg/325mg TAB PO PRN (11:17)
[2021-05-21] MEDS ORDERED: ACETAMINOPHEN 500 MG TAB PO PRN (11:49)
--- NOTE | 2021-05-21 14:17 | Urology Consultation ---
Date of Consultation May 21, 2021 Assessment & Plan (1) Gross hematuria: (2) Benign localized prostatic hyperplasia with lower urinary tract symptoms (LUTS): Called for urgent consult to the OR to place a catheter before aneurysm repair - 20F catheter placed without incident - further evaluation of his record including review of his recent CT angiogram show a large prostate with a TUR defect from prior surgery - I suspect his prostate was the cause of his difficult catheterization - I anticipate continued/intermittent bleeding secondary to the catheter trauma and his prior surgery - will be more significant if anticoagulation or antiplatelet therapy is needed, however, I do not believe the hematuria should preclude the use of any necessary agents - manually irrigate the catheter PRN - remove the catheter when urine starts to clear and he is medically stable History of Present Illness Attending Physician: Michael Buchanan MD History of Present Illness Patient presenting today for a procedure with Dr. Buchanan The I was called into the operating room to assist with catheter placement after several efforts by the nursing staff were unsuccessful He was asleep upon arrival but inspection revealed no lower abdominal incisions and reports from nursing revealed that they met resistance at approximately the level of the prostate and after withdrawing the catheters tried both a straight 16 [place] and a coud 16 [place] Utilizing aseptic technique I was able to place a 20 [place]an coud catheter without difficulty. There was return of some initial bloody urine followed by clearing I did utilize a 16 [place]an catheter that came with initial catheter kit to sound the urethra and determine the level of obstructionI suspect there probably is a small false passage in this area as I could feel a catch and then I converted to the 20 [place]an coud which passed easily Allergies Allergy/AdvReac Type Severity Reaction Status Date / Time No Known Drug Allergies Allergy Unknown NONE Verified 05/21/21 06:07 scallops AdvReac Unknown NAUSEA AND Verified 05/21/21 06:07 VOMITING Home Medications Medication Instructions Recorded Confirmed Type atorvastatin 40 mg tablet 40 mg PO HS 05/09/18 05/21/21 History losartan 50 mg tablet 12.5 mg PO QAM 05/09/18 05/21/21 History metoprolol succinate 25 mg 25 mg PO QPM 05/09/18 05/21/21 History tablet,extended release 24 hr hydroxyzine HCl 25 mg tablet 25 - 50 mg PO Q8H PRN 11/25/19 05/21/21 History paroxetine HCl 10 mg tablet 5 mg PO HS 11/25/19 05/21/21 History acetaminophen 500 mg tablet 500 mg PO Q6H PRN 05/14/21 05/21/21 History amlodipine 5 mg tablet 5 mg PO QPM 05/14/21 05/21/21 History Patient History Medical History Abdominal aortic aneurysm 5.1x5.8 cm Aortic insufficiency 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 05/12/2018: Grade 1 view, MAC#3, ETT#8.0. No postop issues per anesthe elida progress note. History of open reduction and internal fixation (ORIF) procedure LEFT SHOULDER Hx of transurethral resection of prostate WITH LASER Family History Mother Family history of diabetes mellitus Social History Smoking Status: Current every day smoker Cigarettes Per Day: QUIT CIGS 1970/SMALL CIGARS 5 A DAY; Second Hand Exposure: No; Do You Dip or Chew Tobacco: No; Hx Alcohol Use: No Hx Substance Use: No Preferred Language: Irish Communication Ability: Effective Hearing Ability: Use of Hearing Aid Historiography Professor Required: No Beliefs That Will Affect Care: None Current Living Situation: Spouse current occupational status: retired Other Information That Helps Us Care for You: No Feels Safe at Home: Yes Safety Concerns: Feels Safe At This Time Assistive Devices: Denture - Upper, Glasses and Hearing Aid - Bilateral Assistive Devices Comment: PARTIAL Review of Systems Review of Systems: Unable to assess as the patient was under anesthesia at the time of my evaluation Physical Exam 2 Physical Exam: No midline lower abdominal scars, no meatal stenosis, testes without masses, no appreciable inguinal hernias Results & Data ([facility]) Vital Signs (Past 12 Hours) Vital Signs Temp Pulse Pulse Pulse Resp BP BP 05/21/21 12:45 58 L 24 05/21/21 12:30 54 L 13 05/21/21 12:15 67 17 05/21/21 12:00 52 L 13 134/57 L 05/21/21 11:45 51 L 12 05/21/21 11:30 59 L 11 L 05/21/21 11:20 56 L 9 L 05/21/21 10:50 36.4 C L 54 L 12 128/59 L 05/21/21 10:40 61 16 129/53 L 05/21/21 10:30 66 16 136/55 L 05/21/21 10:20 58 L 16 129/58 L 05/21/21 10:10 60 16 139/61 05/21/21 10:01 36.3 C L 74 16 156/67 H 05/21/21 06:15 36.7 C 63 18 160/65 H Pulse Ox 05/21/21 12:45 99 05/21/21 12:30 99 05/21/21 12:15 100 05/21/21 12:00 98 05/21/21 11:45 99 05/21/21 11:30 98 05/21/21 11:20 99 05/21/21 10:50 99 05/21/21 10:40 98 05/21/21 10:30 95 05/21/21 10:20 100 05/21/21 10:10 100 05/21/21 10:01 100 05/21/21 06:15 98 PG Care Time/CCT Total # of Minutes Spent Total Time Spent with Patient: Total time spent is greater than 50% in coordination of care (as documented) at patient's floor/unit and/or counseling patient: Coding Level of Care Code 42624 Inpt Consult Level 3 Diagnoses Gross hematuria R31.0 Benign localized prostatic hyperplasia with lower urinary tract symptoms (LUTS) N40.1
[2021-05-21] MEDS: ceFAZolin 1000MG 1,000 MG/7.5 ML SYR IV SCH (15:42)
--- NOTE | 2021-05-21 17:17 | Critical Care Consultation ---
Date of Consultation May 21, 2021 Assessment & Plan (1) AAA (abdominal aortic aneurysm) without rupture: Postop day 0 status post endovascular repair (2) Benign localized prostatic hyperplasia with lower urinary tract symptoms (LUTS): Urology consult status post Moon gross hematuria (3) Gross hematuria: Urology consult (4) HTN (hypertension): Resume home antihypertensives -Amlodipine 5 mg -Losartan 12.5 mg -Metoprolol 25 mg History of Present Illness Reason for Consultation: Postoperative ICU management Attending Physician: Michael Buchanan MD History of Present Illness Patient is a 80-year-old male with a significant past medical history for hypertension hyperlipidemia anxiety who underwent elective endovascular 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 Allergies Allergy/AdvReac Type Severity Reaction Status Date / Time No Known Drug Allergies Allergy Unknown NONE Verified 05/21/21 06:07 scallops AdvReac Unknown NAUSEA AND Verified 05/21/21 06:07 VOMITING Home Medications Medication Instructions Recorded Confirmed Type atorvastatin 40 mg tablet 40 mg PO HS 05/09/18 05/21/21 History losartan 50 mg tablet 12.5 mg PO QAM 05/09/18 05/21/21 History metoprolol succinate 25 mg 25 mg PO QPM 05/09/18 05/21/21 History tablet,extended release 24 hr hydroxyzine HCl 25 mg tablet 25 - 50 mg PO Q8H PRN 11/25/19 05/21/21 History paroxetine HCl 10 mg tablet 5 mg PO HS 11/25/19 05/21/21 History acetaminophen 500 mg tablet 500 mg PO Q6H PRN 05/14/21 05/21/21 History amlodipine 5 mg tablet 5 mg PO QPM 05/14/21 05/21/21 History Patient History Medical History Abdominal aortic aneurysm 5.1x5.8 cm Aortic insufficiency 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 05/12/2018: Grade 1 view, MAC#3, ETT#8.0. No postop issues per anesthesia progress note. History of open reduction and internal fixation (ORIF) procedure LEFT SHOULDER Hx of transurethral resection of prostate WITH LASER Family History Mother Family history of diabetes mellitus Social History Smoking Status: Current every day smoker Cigarettes Per Day: QUIT CIGS 1970/SMALL CIGARS 5 A DAY; Second Hand Exposure: No; Do You Dip or Chew Tobacco: No; Hx Alcohol Use: No Hx Substance Use: No Preferred Language: Mexican Communication Ability: Effective Hearing Ability: Use of Hearing Aid Coating And Embossing Unit Operator Required: No Beliefs That Will Affect Care: None Current Living Situation: Spouse current occupational status: retired Other Information That Helps Us Care for You: No Feels Safe at Home: Yes Safety Concerns: Feels Safe At This Time Assistive Devices: Denture - Upper, Glasses and Hearing Aid - Bilateral Assistive Devices Comment: PARTIAL Review of Systems Review of Systems: No chest pain or shortness of breath. Physical Exam Physical Exam: General: Alert. nontoxic. Skin: Warm, dry, Head: Atraumatic Ears, nose, mouth and throat: airway patent Cardiovascular: Normal peripheral perfusion Respiratory: no respiratory distress Gastrointestinal: Non distended : Moon catheter present with hematuria noted Musculoskeletal: No deformity left inguinal incision has oozing and shadowing however there is no pulsatile mass nor large hematoma 2+ palpable pulses in bilateral extremities Results & Data Results & Data ([facility]) Vital Signs (Past 12 Hours) Vital Signs Temp Pulse Pulse Pulse Resp BP BP 05/21/21 16:00 57 L 145/52 H 05/21/21 15:59 36.4 C L 77 21 175/56 H 05/21/21 15:30 58 L 13 05/21/21 15:15 56 L 17 05/21/21 15:00 61 21 145/58 H 05/21/21 14:45 65 18 05/21/21 14:30 56 L 16 05/21/21 14:17 54 L 18 132/56 L 05/21/21 14:15 55 L 12 05/21/21 14:00 58 L 18 132/56 L 05/21/21 13:45 56 L 18 05/21/21 13:30 52 L 12 05/21/21 13:17 53 L 16 135/54 L 05/21/21 13:15 57 L 18 05/21/21 13:00 52 L 12 135/54 L 05/21/21 12:45 58 L 24 05/21/21 12:30 54 L 13 05/21/21 12:17 55 L 13 134/57 L 05/21/21 12:15 67 17 05/21/21 12:00 52 L 13 134/57 L 05/21/21 11:45 51 L 12 05/21/21 11:30 59 L 11 L 05/21/21 11:20 56 L 9 L 05/21/21 11:17 36.3 C L 53 L 14 127/54 L 05/21/21 10:50 36.4 C L 54 L 12 128/59 L 05/21/21 10:40 61 16 129/53 L 05/21/21 10:30 66 16 136/55 L 05/21/21 10:20 58 L 16 129/58 L 05/21/21 10:10 60 16 139/61 05/21/21 10:01 36.3 C L 74 16 156/67 H 05/21/21 06:15 36.7 C 63 18 160/65 H Pulse Ox 05/21/21 16:00 05/21/21 15:59 96 05/21/21 15:30 97 05/21/21 15:15 97 05/21/21 15:00 98 05/21/21 14:45 97 05/21/21 14:30 96 05/21/21 14:17 97 05/21/21 14:15 95 05/21/21 14:00 96 05/21/21 13:45 96 05/21/21 13:30 96 05/21/21 13:17 97 05/21/21 13:15 98 05/21/21 13:00 99 05/21/21 12:45 99 05/21/21 12:30 99 05/21/21 12:17 98 05/21/21 12:15 100 05/21/21 12:00 98 05/21/21 11:45 99 05/21/21 11:30 98 05/21/21 11:20 99 05/21/21 11:17 97 05/21/21 10:50 99 05/21/21 10:40 98 05/21/21 10:30 95 05/21/21 10:20 100 05/21/21 10:10 100 05/21/21 10:01 100 05/21/21 06:15 98 Critical Care Results & Data Vital Signs (Past 12 Hours) Vital Signs Temp Pulse Pulse Pulse Resp BP BP 05/21/21 16:00 57 L 145/52 H 05/21/21 15:59 36.4 C L 77 21 175/56 H 05/21/21 15:30 58 L 13 05/21/21 15:15 56 L 17 05/21/21 15:00 61 21 145/58 H 05/21/21 14:45 65 18 05/21/21 14:30 56 L 16 05/21/21 14:17 54 L 18 132/56 L 05/21/21 14:15 55 L 12 05/21/21 14:00 58 L 18 132/56 L 05/21/21 13:45 56 L 18 05/21/21 13:30 52 L 12 05/21/21 13:17 53 L 16 135/54 L 05/21/21 13:15 57 L 18 05/21/21 13:00 52 L 12 135/54 L 05/21/21 12:45 58 L 24 05/21/21 12:30 54 L 13 05/21/21 12:17 55 L 13 134/57 L 05/21/21 12:15 67 17 05/21/21 12:00 52 L 13 134/57 L 05/21/21 11:45 51 L 12 05/21/21 11:30 59 L 11 L 05/21/21 11:20 56 L 9 L 05/21/21 11:17 36.3 C L 53 L 14 127/54 L 05/21/21 10:50 36.4 C L 54 L 12 128/59 L 05/21/21 10:40 61 16 129/53 L 05/21/21 10:30 66 16 136/55 L 05/21/21 10:20 58 L 16 129/58 L 05/21/21 10:10 60 16 139/61 05/21/21 10:01 36.3 C L 74 16 156/67 H 05/21/21 06:15 36.7 C 63 18 160/65 H Pulse Ox 05/21/21 16:00 05/21/21 15:59 96 05/21/21 15:30 97 05/21/21 15:15 97 05/21/21 15:00 98 05/21/21 14:45 97 05/21/21 14:30 96 05/21/21 14:17 97 05/21/21 14:15 95 05/21/21 14:00 96 05/21/21 13:45 96 05/21/21 13:30 96 05/21/21 13:17 97 05/21/21 13:15 98 05/21/21 13:00 99 05/21/21 12:45 99 05/21/21 12:30 99 05/21/21 12:17 98 05/21/21 12:15 100 05/21/21 12:00 98 05/21/21 11:45 99 05/21/21 11:30 98 05/21/21 11:20 99 05/21/21 11:17 97 05/21/21 10:50 99 05/21/21 10:40 98 05/21/21 10:30 95 05/21/21 10:20 100 05/21/21 10:10 100 05/21/21 10:01 100 05/21/21 06:15 98 Lab & Micro Results (Past 24 Hours) Hgb 12.6 g/dL (14.0-18.0) L 05/21/21 Hct 38.1 % (42-52) L 05/21/21 2 No Data to Display No Data to Display I & O Totals 24 Hours 05/20/21 05/21/21 05/22/21 06:59 06:59 06:59 Intake Total 2520 / 2520 Output Total 1395 / 1395 Balance 1125 / 1125 Cumulative 04/30/21 07:11 thru 05/21/21 15:01 Intake Total 2520 Output Total 1395 Balance 1125 RT Ventilator Mngmt (Last Documented) Ventilator Ordered Settings Respiratory Rate 21 05/21/21 15:59 Ventilator - PT Measurements Respiratory Rate 21 Coding Level of Care Code 07910 Inpt Consult Level 2 Diagnoses Benign localized prostatic hyperplasia with lower urinary tract symptoms (LUTS) N40.1 Gross hematuria R31.0 AAA (abdominal aortic aneurysm) without rupture I71.4 HTN (hypertension) I10
[2021-05-21] MEDS ORDERED: PARoxetine HCL 10 MG TAB PO SCH (21:00)
[2021-05-21] MEDS ORDERED: ATORVASTATIN 40 MG TAB PO SCH (21:00)
[2021-05-21] MEDS ORDERED: METOPROLOL SUCC 25MG EXT REL TAB PO SCH (21:00)
[2021-05-21] MEDS ORDERED: amLODIPine BESYLATE 5 MG TAB PO SCH (21:00)
[2021-05-22] MEDS: ceFAZolin 1000MG 1,000 MG/7.5 ML SYR IV SCH (00:11)
[2021-05-22 05:44] LABS: Basophils # (auto) 0.01 K/uL (0-0.2); Basophils % (auto) 0.1 %; Eosinophils # (auto) 0.05 K/uL (0-0.5); Eosinophils % (auto) 0.3 %; Hematocrit (blood only) 35.3 % (42-52); Immature Granulocytes # (auto) 0.03 K/uL (0.00-0.02); Immature Granulocytes % (auto) 0.2 %; Lymphocytes # (auto) 1.49 K/uL (1.2-3.4); Lymphocytes % (auto) 9.2 %; Mean Corpuscular Hemoglobin 30.2 pg (25-34); Mean Corpuscular Volume 88.9 fL (80-100); Mean Platelet Volume 10.9 fL (7.4-10.4); Monocytes # (auto) 2.21 K/uL (0.11-0.59); Monocytes % (auto) 13.7 %; Neutrophils % (auto) 76.5 %; Platelet Count 184 K/uL (130-400); RDW Coefficient of Variation 14.4 % (11.5-14.5); RDW Standard Deviation 47.1 fL (36.4-46.3); Red Blood Count 3.97 M/uL (4.7-6.1); White Blood Count 16.19 K/uL (4.8-10.8)
[2021-05-22 06:15] LABS: BUN Creatinine Ratio 18.5 (10-20); Calcium 8.4 mg/dl (8.5-10.1); Creatinine Clr Calc Pharmacy 56.4 ml/min; Est GFR (African American) 75.8 ml/min; Est GFR (Non-African American) 65.4 ml/min
--- NOTE | 2021-05-22 08:34 | Critical Care Progress Note ---
Date of Service May 22, 2021 Assessment & Plan (1) Benign localized prostatic hyperplasia with lower urinary tract symptoms (LUTS): (2) Gross hematuria: Plan: BPH s/p TURP (laser) in the past, difficult catheter yesterday - hematuria after the procedure (as expected), improved today - clearing well today - ok to d/c cath whenever determined to be medically appropriate - he has a relationship with a urologist in [place] -no real need for any acute outpt f/u (3) AAA (abdominal aortic aneurysm) without rupture: Plan: Status post Percutaneous Endovascular Repair of Abdominal Aortic Aneurysm performed yesterday by Dr. Buchanan. Postop day 1. Management and disposition per vascular surgery. (4) Aortic insufficiency: Admission and Anticipated Discharge Date Admission Date: May 21, 2021 Supervising Physician Co-Signing Physician Notes Dr. Staples was resident physician during care of patient. I separately evaluated patient for cameron portions of the history and the exam. I was present during the critical portion of medical decision making, and I discussed the case with the resident. I generally agree with the findings and plan. Oozing in left groin improved, no active bleeding. Urine clearing, anticipate voiding trial. Dispo per vascular surgery Subjective Patient seen at bedside this morning. Patient reports that there has been some gross hematuria, but he states that it was explained by the urologist that is likely due to some trauma with getting the catheter in for his vascular surgery. Otherwise patient has no complaints and denies any chest pain or shortness of breath. Patient has been able to tolerate eating meals and drinking water. Physical Exam Constitutional: WD/WN, vitals as above Eyes: PERRL, conjunctivae normal, anicteric sclerae Neck: trachea midline, no thyromegaly Respiratory: normal respiratory effort, lungs clear to auscultation Cardiovascular: Rate/Rhythm: regular rate and regular rhythm Heart Sounds: + murmur Gastrointestinal (Abdomen): normal bowel sounds, soft, nontender, no hepatosplenomegaly Musculoskeletal: Head/Neck/Chest: normocephalic and head atraumatic Skin: no rashes, warm and dry Neurologic: moves all extremities Psychiatric: A+Ox3, euthymic affect Genitourinary: Moon catheter in place Results & Data Results & Data ([facility]) Vital Signs (Past 12 Hours) Vital Signs Temp Pulse Resp BP Pulse Ox 05/22/21 08:15 61 19 94 05/22/21 08:01 65 17 128/58 L 95 05/22/21 08:00 59 L 19 152/58 H 95 05/22/21 07:45 60 19 94 05/22/21 07:30 61 18 96 05/22/21 07:15 58 L 17 95 05/22/21 07:00 58 L 15 142/60 H 97 05/22/21 06:45 60 16 96 05/22/21 06:30 58 L 16 95 05/22/21 06:15 58 L 14 95 05/22/21 06:00 58 L 18 140/73 95 05/22/21 05:00 66 15 139/76 94 05/22/21 04:00 36.9 C 66 16 133/55 L 95 05/22/21 03:30 62 12 94 05/22/21 03:00 62 16 134/53 L 95 05/22/21 02:30 63 17 95 05/22/21 02:00 62 16 95 05/22/21 01:30 62 17 94 05/22/21 01:00 64 15 133/51 L 94 05/22/21 00:30 63 14 95 05/22/21 00:00 68 16 130/50 L 94 05/21/21 23:30 64 16 94 05/21/21 23:14 65 20 136/57 L 96 05/21/21 23:00 63 16 95 05/21/21 22:00 63 15 116/50 L 94 05/21/21 21:00 67 21 131/61 94 Resident Activity Tracking Resident Involvement: Resident Care Provided Care Provided: Adult Hospital Medicine
[2021-05-22] MEDS ORDERED: LOSARTAN POTASSIUM 25 MG TAB PO SCH (09:00)
--- NOTE | 2021-05-22 09:01 | Urology Progress Note ---
Date of Service May 22, 2021 Assessment & Plan (1) Gross hematuria: Plan: BPH s/p TURP (laser) in the past, difficult catheter yesterday - hematuria after the procedure (as expected) - clearing well today - ok to d/c cath whenever determined to be medically appropriate - he has a relationship with a urologist in [place] -no real need for any acute outpt f/u Admission and Anticipated Discharge Date Admission Date: May 21, 2021 Subjective no complaints urine clearing anxious to get out of the ICU feels good overall Physical Exam Physical Exam: urine clearing - light cranberry colored Results & Data ([facility]) Vital Signs (Past 12 Hours) Vital Signs Temp Pulse Resp BP Pulse Ox 05/22/21 08:15 61 19 94 05/22/21 08:01 65 17 128/58 L 95 05/22/21 08:00 36.6 C 59 L 19 152/58 H 95 05/22/21 07:45 60 19 94 05/22/21 07:30 61 18 96 05/22/21 07:15 58 L 17 95 05/22/21 07:00 58 L 15 142/60 H 97 05/22/21 06:45 60 16 96 05/22/21 06:30 58 L 16 95 05/22/21 06:15 58 L 14 95 05/22/21 06:00 58 L 18 140/73 95 05/22/21 05:00 66 15 139/76 94 05/22/21 04:00 36.9 C 66 16 133/55 L 95 05/22/21 03:30 62 12 94 05/22/21 03:00 62 16 134/53 L 95 05/22/21 02:30 63 17 95 05/22/21 02:00 62 16 95 05/22/21 01:30 62 17 94 05/22/21 01:00 64 15 133/51 L 94 05/22/21 00:30 63 14 95 05/22/21 00:00 68 16 130/50 L 94 05/21/21 23:30 64 16 94 05/21/21 23:14 65 20 136/57 L 96 05/21/21 23:00 63 16 95 05/21/21 22:00 63 15 116/50 L 94 05/21/21 21:00 67 21 131/61 94 PG Care Time/CCT Total # of Minutes Spent Total Time Spent with Patient: Total time spent is greater than 50% in coordination of care (as documented) at patient's floor/unit and/or counseling patient: Coding Level of Care Code 11095 Subseq Hosp Care Lvl 2 Diagnoses Gross hematuria R31.0
--- NOTE | 2021-05-22 13:19 | Surgery Progress Note ---
Date of Service May 22, 2021 Assessment & Plan (1) S/P endovascular aneurysm repair: Plan: Doing well. Urine has cleared up. Will d/c jacob. Once he spontaneously voids he can be d/c'd. He will follow up with his urologist from [facility]. Admission and Anticipated Discharge Date Admission Date: May 21, 2021 Subjective Patient without complaint. No pain in feet or groins. Physical Exam Constitutional: WD/WN, vitals as above Respiratory: normal respiratory effort and + respiratory distress Auscultation: lungs clear to auscultation bilaterally Cardiovascular: RRR, no murmur, no edema Extremities: normal capillary refill Gastrointestinal (Abdomen): Percussion/Palpation: abdomen soft; abdomen nontender Musculoskeletal: no cyanosis or clubbing, extremities motor strength 5/5 Skin: + incision (puncture sites clean without hematoma) Neurologic: CN's II-XI intact bilaterally and moves all extremities Psychiatric: Orientation: alert and oriented x 3 Results & Data ([facility]) Vital Signs (Past 12 Hours) Vital Signs Temp Pulse Resp BP Pulse Ox 05/22/21 08:15 61 19 94 05/22/21 08:01 65 17 128/58 L 95 05/22/21 08:00 36.6 C 59 L 19 152/58 H 95 05/22/21 07:45 60 19 94 05/22/21 07:30 61 18 96 05/22/21 07:15 58 L 17 95 05/22/21 07:00 58 L 15 142/60 H 97 05/22/21 06:45 60 16 96 05/22/21 06:30 58 L 16 95 05/22/21 06:15 58 L 14 95 05/22/21 06:00 58 L 18 140/73 95 05/22/21 05:00 66 15 139/76 94 05/22/21 04:00 36.9 C 66 16 133/55 L 95 05/22/21 03:30 62 12 94 05/22/21 03:00 62 16 134/53 L 95 05/22/21 02:30 63 17 95 05/22/21 02:00 62 16 95 05/22/21 01:30 62 17 94
--- NOTE | 2021-05-23 08:34 | Billing Data ---
Date of Service May 22, 2021 Coding Level of Care Code 32847 Subseq Hosp Care Lvl 1
--- NOTE | 2021-05-23 11:13 | Discharge Summary ---
Date of Service May 23, 2021 Admission HPI Per Admitting Provider Mr. Davalos is an elderly male who presents to Dr. Buchanan's vascular surgery clinic as a new patient in consultation for an abdominal aortic aneurysm which is 5.2 cm in size. Patient states that he has been undergoing regular ultrasound evaluations of this for some time, and was told that he had increased to a point that it may need surgical repair. Patient has a history of hypertension, hypercholesterolemia, kidney stones, palpitations, and a "leaking heart valve." Patient denies any fever, chills, chest pain, shortness of breath, headaches, cough, abdominal pain, nausea, vomiting, rest pain, claudication, nonhealing wounds or ulcers, other concerns. Admission Exam Per Admitting Provider Constitutional: In general patient is a healthy-appearing well-nourished developed elderly male in no distress. He is alert and oriented without any deficits. His head is normocephalic and atraumatic. Neck is nontender with a midline trachea. His carotids do not demonstrate a bruit. Heart is regular with a systolic murmur. Clear throughout. Abdomen is soft and nontender with normoactive bowel sounds in all 4 quadrants. His pulsatile mass is appreciable measuring about 5 cm. Brachial radial and femoral pulses are +3. Right posterior tibialis +2, right DP is +3. Left DP and PT are +2. He has brisk capillary refill and no sign of distal ischemia. There is no edema Principal Diagnosis 1. s/p PEVAR 2. AAA Discharge Exam Constitutional WD/WN, vitals as above Respiratory normal respiratory effort and + respiratory distress Auscultation: lungs clear to auscultation bilaterally Cardiovascular RRR, no murmur, no edema Extremities: normal capillary refill Gastrointestinal (Abdomen) Percussion/Palpation: abdomen soft; abdomen nontender Musculoskeletal no cyanosis or clubbing, extremities motor strength 5/5 Skin + incision (puncture sites clean without hematoma) Neurologic CN's II-XI intact bilaterally and moves all extremities Psychiatric Orientation: alert and oriented x 3 Discharge Data Allergies Allergy/AdvReac Type Severity Reaction Status Date / Time No Known Drug Allergies Allergy Unknown NONE Verified 05/21/21 06:07 scallops AdvReac Unknown NAUSEA AND Verified 05/21/21 06:07 VOMITING Consultations 05/21/21 11:17 Consult Customer Relations Advisor Routine Consult Urology Routine Procedures Performed Operation Date: 05/21/21 08:00 Actual Procedures p Percutaneous Endovascular Repair of Abdominal Aortic Aneurysm, Mechanical Closure of Bilateral Femoral Arteries(Bilateral) - Michael Buchanan MD Ordered Studies 05/21/21 07:23 EV aorto bi iliac repair Routine Hospital Course (1) S/P endovascular aneurysm repair: Doing well POD #1. Urine has cleared up. Will d/c jacob. Once he spontaneously voids he can be d/c'd. He will follow up with his urologist from [facility]. Total Time Total Time Spent Total Time Spent (In Minutes): 0 Discharge Plan Discharge Items Patient Disposition: Home - Self-Care Reason For Visit: Abdominal Aortic Aneurysm Discharge Diagnosis: Endovascular repair of an abdominal aortic aneurysm Activity: Per Instructions section Non-emergency contact: Surgeon Call non-emergency contact if: your temperature is above 101.5, your wound has increased redness, your wound has increased drainage and your wound pain has increased Follow-up/Referrals: Randell Valdes, [Primary Care Provider] - Diet: Heart Healthy Addtl Attending Provider Instructions: SPECIAL CARE INSTRUCTIONS: Medications: * Continue to take your medications as directed. Incision/Puncture Site Care: * You will have an incision or puncture in each of your groins. Liquid glue will be used to seal your incisions/puncture site. This will lift off as the incisions/puncture sites heal. * If Liquid glue is not used, there will be small dressings covering your in cisions. After you get home, you may remove the dressings and shower - allowing the warm soapy water to run over it. * Be sure to dry the sites well and keep them dry. * DO NOT SOAK IN A TUB/POOL/etc. UNTIL ALL SURGICAL SITES ARE HEALED. DO NOT REMOVE THE GLUE UNTIL THE INCISIONS HEAL. Restrictions: * Limit yourself to career development engineer activity for the first week. * You may walk and go up and down steps. * Avoid excessive bending or movement at the level of the incisions or punctures. Risks and Possible Complications: * Infection/Drainage/Bleeding - Drainage or bleeding from the incisions/puncture site should be minimal. If you have excessive bleeding or drainage, call our office ([phone]) right away. * Pain/Numbness - You may experience some mild pain or soreness at your incision sites. You may also have some numbness around the incisions or into the insides of your thighs. Bruising is normal and should resolve within 2 weeks. * Changes in Appetite or Bowel Habits - Mostly related to anesthesia and pain medication, some patients have reported decreased appetite and/or problems with constipation. These symptoms usually improve over a few weeks. Remembering to take an [id number] stool softener, as directed, will help you to avoid constipation. Call our office and seek emergent treatment if you develop: * Fever or chills * Have a temperature greater than 101 degrees F * Any redness or purulent drainage from your incisions or punctures * Severe abdominal, chest or back pain SKIN IRRITATION: * You may experience some redness and/or swelling in the area where radiation was administered. If any skin irritation occurs, please contact your family physician. You will be receiving a call from the Vascular Surgery Nurse after you are discharged. FOLLOW UP VISIT: It is important for you to keep your follow up appointments with your medical provider. Keep any scheduled doctor appointments. Call [phone] to schedule a follow up appointment if one not already scheduled. Pending Studies at Discharge: No Stand-Alone Forms: My [facility] [employer], Smoking Cessation Medications and DC Order Prescriptions: New oxycodone-acetaminophen [Percocet] 5-325 mg tablet 1 tab PO Q6H PRN (Reason: pain) Qty: 10 RF: 0 Continued losartan 50 mg Tablet 12.5 mg PO QAM RF: 0 atorvastatin 40 mg Tablet 40 mg PO HS RF: 0 metoprolol succinate 25 mg Tablet Extended Release 24 Hr 25 mg PO QPM RF: 0 paroxetine HCl 10 mg tablet 5 mg PO HS RF: 0 hydroxyzine HCl 25 mg tablet 25 - 50 mg PO Q8H PRN (Reason: anxiety) RF: 0 amlodipine 5 mg Tablet 5 mg PO QPM RF: 0 acetaminophen 500 mg Tablet 500 mg PO Q6H PRN (Reason: Pain) RF: 0 Discharge Orders: Discharge Order (Routine); Ordered 05/22/21 Ordered By: Michael Buchanan Admission Data Admit Date/Time: 05/21/21 07:39 Attending Provider: Michael Buchanan Admit Provider: Michael Buchanan Primary Care Provider: Randell Valdes Other Providers: Deon Vanegas ; Elbert Das ; Gorge Valdivia ; Seamus Chacon ; Thor Brown ; Marcial Zamora ; Ale Richard ; Luis F Zaman ; Alexis Bonner ; Javier Del Castillo ; Zeeshan Tsai ; Leelee Perez ; Amrit Diallo ; Omayra Worthy ; Rabia Preciado ; Janice Graf ; Riccardo Caldwell ; Varinder Metzger ; Kelly Robert ; Karen Graf ; Taj Porter ; Ap Ramirez Other Interventions: Discharge Summary Assessment (RN) Last Done: 05/22/21 14:25
== END 2021-05-22 15:13 | disposition home or self-care (01) | DRG 269 ==
LOC: ASU 05:53 → 1E 07:39

== ENCOUNTER 2024-02-07 09:30 | Observation (INO) ==
--- NOTE | 2024-02-04 10:38 | Anesthesiology Consultation ---
Date of Service February 04, 2024 Assessment & Plan (1) Encounter for pre-operative examination: - Infectious disease screening: Per assessment on 02/04/24- No known recent infectious disease contacts or current infectious disease symptoms. - Urology visit (02/03/24): "Papillary lesion within the bladder. Patient has an impending major surgical intervention coming up with his cardiothoracic team. Is going to undergo valve repair as well as possible further open heart procedure. With this and likely impending blood thinners will likely be high risk for potential bleeding issues did discuss more urgent intervention for management of obstructive issues as well as the bladder tumor/lesion within the bladder and bladder neck. Approximately 20 additional minutes discussing with patient different options moving forward. Will need to confirm with patient's cardiology/cardiothoracic team but will likely need to undergo intervention. Could likely be done with sedation. Will likely need overnight observation." - Cardiothoracic surgery visit (02/01/24): "He reports being symptomatic in form of dyspnea on exertion and dizziness.. The most recent echo showed severe AI with dilated LV and preserved systolic function. He then had an MRI of the chest showing the ascending aorta diameter of 47 mm and aortic root diameter 43 mm. His workup included a cardiac cath which showed 70% lesion of the LAD and 50% mid LM disease. He states that most recently he started to have hematuria and he is getting a cystoscopy next week. He also mentioned getting an abdominal MRI to investigate an adrenal mass.. In summary, Dario has symptomatic severe aortic valve insufficiency, aortic aneurysm and coronary artery disease. I think he is a high risk surgical candidate based on his age and frailty but his risk is not prohibitive. I had a lengthy discussion with the patient and his spouse about the rationale for aortic valve replacement and ascending aorta repair, and CABG.. The patient understands all these risks and anticipates that any of these complications may occur. In preparation for surgery, he will need dental clearance and PFTs (smokes cigar). Will have to obtain a copy of the adrenal MRI and the results of the cystoscopy." > Abdomen MRI done 01/28/24. TURP/TURBT scheduled 02/07/24. - Per urology/CT surgery, recommendation for urologic intervention to be done prior to upcoming AVR/ascending aorta repair/CABG. "Could be done with sedation" per urology office visit note. Case reviewed with Dr. Florian. He feels patient okay to remain as scheduled for given surgery- ultimate decision to proceed at anesthesiologist discretion DOS. Nicolette with surgeon's office made aware. Chart Review Chart Review: Patient NOT seen in Pre Admission Testing History Surgery Operation Date: 02/07/24 11:30 Proposed Procedures p TURP (Transurethral Resection of the Prostate), and Transurethral Resection of Bladder Tumor - Amrit Diallo, DO Height/Weight Height: 5 ft 9 in Weight: 70.76 kg Allergies Allergy/AdvReac Type Severity Reaction Status Date / Time No Known Drug Allergies Allergy Unknown None Verified 02/04/24 11:36 scallops AdvReac Unknown Nausea, Verified 02/04/24 11:36 vomiting Medications Home Medications Medication Instructions Recorded Confirmed Last Taken atorvastatin 40 mg tablet 40 mg PO HS 05/09/18 02/04/24 01/19/24 metoprolol succinate 25 mg 25 mg PO HS 05/09/18 02/04/24 01/19/24 tablet,extended release 24 hr paroxetine HCl 10 mg tablet 10 mg PO HS 11/25/19 02/04/24 01/20/24 amlodipine 5 mg tablet 2.5 mg PO QAM 05/14/21 02/04/24 01/20/24 losartan 25 mg tablet 12.5 mg PO QAM 09/01/21 02/04/24 01/20/24 meclizine 12.5 mg tablet 12.5 mg PO TID PRN Dizziness 02/04/24 02/04/24 Unknown Past Medical History Medical History Adrenal nodule Abdomen MRI 01/2024: The presence of adenoma in the medial limb of the right adrenal gland cannot be ruled out. A nodule measuring 1.5 x 1.2 cm is seen in the left adrenal body and 1.1 x 0.9 cm in the outer limb. It shows a mild signal drop in the [id number] sequence with mild continuous peripheral enhancement. > Bulky right adrenal gland with no definitive adenoma. "Stable." Anxiety Aortic insufficiency mod-severe AR per 12/22/23 ECHO Follows with [facility] cardio Cardiac cath 01/20/24 > "Follow-up with Dr. Steel/[facility] cardiac surgery regarding possible AVR and CABG" Ascending aorta dilatation Echo 12/21/23: aortic root (4.3 cm) and ascending aorta (4.7 cm) BPH w urinary obs/LUTS CAD (coronary artery disease) Cardiac cath 01/20/24: Multivessel coronary artery disease 50% mid left main stenosis, 90% focal mid LAD, 75% ostial D2, 45% ostial ramus, 40% ostial RCA Depression Dizziness Improvement with Meclizine addition Gross hematuria History of abdominal aortic aneurysm (AAA) s/p Percutaneous AAA repair (2021, [facility]) Abdominal MRI 01/28/24: "The abdominal aorta and its major branches are normal in caliber. No aneurysm or significant atherosclerosis." Hyperlipidemia Hypertension Lesion of bladder Past Family History Family History Mother Family history of diabetes mellitus Past Surgical History Surgical History H/O nephrostomy 2/2 nephrolithiasis History of cardiac cath History of cataract surgery B/L History of colonoscopy History of cystoscopy + kidney stone extraction History of herniorrhaphy x2 History of open reduction and internal fixation (ORIF) procedure Left shoulder Hx of transurethral resection of prostate with laser S/P endovascular aneurysm repair Percutaneous AAA repair (2021, [facility]) Social History Smoking Status: Former smoker tobacco type: cigars Smoking cigarettes per day: 4 per day Do You Dip or Chew Tobacco: No Hx Alcohol Use: No Alcohol type: beer Hx Substance Use: No substance use type: does not use Lab Results Anesthesia Preop Results Results Anesthesia Widget: WBC 8.85 K/ul (4.8-10.8) 01/14/24 Hgb 15.0 g/dl (14.0-18.0) 01/14/24 Hct 45.5 % (42.0-52.0) 01/14/24 Plt 177 K/uL (130-400) 01/14/24 Na 137 mmol/L (136-145) 01/14/24 K TNP 01/14/24 Cl 106 mmol/L (98-107) 01/14/24 CO2 28 mmol/L (21-32) 01/14/24 BUN 22 mg/dl (6-23) 01/14/24 Creat 1.06 mg/dl (0.6-1.4) 01/14/24 Glucose Level 84 mg/dl (70-99(Fasting)) 01/14/24 Urine Color Yellow 01/14/24 Urine Appearance Clear (Clear) 01/14/24 Urine pH 7.0 (4.5-7.5) 01/14/24 Urine Specific [place] 1.011 (1.000-1.030) 01/14/24 Urine Protein 1+ (Negative) H 01/14/24 Urine Glucose (UA) Negative (Negative) 01/14/24 Urine Ketones Negative (Negative) 01/14/24 Urine Blood 2+ (Negative) H 01/14/24 Urine Nitrite Negative (Negative) 01/14/24 Urine Bilirubin Negative (Negative) 01/14/24 Urine Urobilinogen Negative (Negative) 01/14/24 Urine Leukocyte Esterase Trace (Negative) H 01/14/24 Urine WBC (Auto) 0-5 /hpf (0-5) 01/19/24 Urine RBC (Auto) 6-10 /hpf (0-2) H 01/19/24 Urine Hyaline Casts (Auto) 0-2 /lpf (0-2) 01/19/24 Urine Epithelial Cells (Auto) 0-2 /hpf (0-2) 01/19/24 Urine Bacteria (Auto) None Seen (None Seen) 01/19/24 Testing Laboratory Results 01/14/24 potassium not run due to hemolyzed specimen. Potassium from 01/01/24 WNL at 4.2. At anesthesiologist/surgeon discretion DOS if updated potassium level needed from their perspective. Urine culture (01/19/24): No growth Electrocardiogram Date: 11/30/23 SB at 54bpm. "Otherwise normal ECG" Chest X-Ray Date: 02/01/24 Findings: + NAD Echocardiogram Date: 12/22/23 Moderate LVD. No RWMA. EF 65%. Mild cLVH. Basal asymmetric septal hypertrophy of the elderly. Grade II DD. Severe LAD. RAD. Dilated aortic root (4.3cm) and ascending aorta (4.7cm). At least moderate to severe if not severe, very eccentric aortic insufficiency with some concerning signs for more severe regurgitation including progressive LV dilation, wide pulse pressure and increased LVOT velocity. Mild TR. Moderate [place]. Estimated PASP 40mmhg. Mildly elevated pulmonary artery pressure. Cardiac Catheterization Date: 01/20/24 Summary: Multivessel coronary artery disease- 50% mid left main stenosis, 90% focal mid LAD, 75% ostial D2, 45% ostial ramus, 40% ostial RCA. Normal right and left sided filling pressures. Normal pulmonary artery pressures. Normal cardiac output Recommendations: Follow-up with Dr. Steel/[facility] cardiac surgery regarding possible AVR and CABG. Continue ASCVD risk factor modification. Started on aspirin. Other Testing Abdominal MRI Date: 01/28/24 Bulky body and lateral limb of the left adrenal gland with two nodules showing mild signal drop in the ply-[id number]-blvrp sequence and mild continuous peripheral enhancement suggesting adenomas. Stable. Bulky right adrenal gland with no definitive adenoma. Stable. Simple hepatic cyst. Stable. Left renal simple cysts. Stable. No significant interval change.
[2024-02-07] MEDS: LR 15ML/HR IV SCH (10:29)
--- NOTE | 2024-02-07 10:32 | History & Physical Bridge Note ---
Date of Service February 07, 2024 History & Physical Bridge Note I have examined the patient, reviewed the History & Physical and in the interval since the performance of the History & Physical I have noted the following changes of clinical significance: no changes noted
[2024-02-07] MEDS ORDERED: ONDANSETRON INJ 2 MG/ML 2 ML VIAL IV PRN ×2 (10:33→11:05)
[2024-02-07] MEDS ORDERED: HYDROCODONE/ACETAMOPHEN 5/325MG TAB PO PRN (10:33)
[2024-02-07] MEDS ORDERED: MoRPHine SULFATE 2 MG/ML CARP IV PRN (10:33)
[2024-02-07] MEDS ORDERED: PHENAZOPYRIDINE HCL 200 MG TAB PO PRN (10:33)
[2024-02-07] MEDS ORDERED: oxyBUTYnin chloride 5 MG TAB PO PRN (10:33)
[2024-02-07] MEDS ORDERED: fentaNYL citrate PF 100 MCG/2 ML VIAL ONE (10:54)
[2024-02-07] MEDS ORDERED: MIDAZOLAM HCL 1 MG/ML 2ML VIAL ONE (10:54)
[2024-02-07] MEDS ORDERED: HYDROmorphone INJ 2 MG/ML SYR/VIAL IV PRN (11:05)
[2024-02-07] MEDS ORDERED: fentaNYL citrate PF 100 MCG/2 ML VIAL IV PRN (11:05)
[2024-02-07] MEDS ORDERED: ATROPINE SULFATE 0.1 MG/ML 10ML SYR IV PRN (11:05)
[2024-02-07] MEDS ORDERED: PROMETHAZINE HCL 6.25 MG in SODIUM CHLORIDE 0.9% 50 ML IV PRN (11:05)
[2024-02-07] MEDS ORDERED: ePHEDrine sulfate 50 MG/ML AMP IV PRN (11:05)
[2024-02-07] MEDS: ceFAZolin 2000MG 2,000 MG/15 ML SYR IV SCH ×2 (11:38→20:51)
[2024-02-07] MEDS ORDERED: LIDOCAINE 2% 2 ML VIAL/AMP(20MG/ML) INFIL ONE (11:57)
[2024-02-07] MEDS ORDERED: PROPOFOL IV EMULSION 10 MG/ML 20 ML VIAL IV ONE (11:57)
[2024-02-07] MEDS ORDERED: ONDANSETRON INJ 2 MG/ML 2 ML VIAL ONE (11:57)
[2024-02-07] MEDS ORDERED: PHENYLEPHRINE 100MCG/ML 5ML SYR ONE (11:57)
[2024-02-07] MEDS ORDERED: ePHEDrine sulfate 50 MG/ML AMP ONE (11:59)
--- NOTE | 2024-02-07 12:45 | Operative Report ---
[facility] Post Operative Report Pre & Post Diagnosis Operation Date: 02/07/24 11:30 Pre-Op Diagnosis: Hematuria, Benign Prostatic Hyperplasia Post-Op Diagnosis: Hematuria, Benign Prostatic Hyperplasia I identified the patient and participated in the time-out.: Yes Procedure Operation Date: 02/07/24 11:30 Actual Procedures Transurethral Resection of the Prostate. Cystoscopy with Bladder biopsy, Bladder Fulguration, and Transurethral Resection of Bladder Tumor Small(Not Applicable) - Amrit Diallo DO Surgeon Amrit Diallo, II, DO Trim Attacher None Estimated Blood Loss 5 Findings Consistent with Post-Op Diagnosis Large irregular regrowth of the Prostate with obstruction. Papillary lesion of the left trigone Irregular raised lesion of the midline trigone near the bladder neck. Lesion approx 1.9 cm Thickened lining of the posterior wall. Specimens Prostate adenoma. Resection of midline trigone/bladder neck Biopsy left trigone. Drains 22Fr Catheter Anesthesia Type General Complications none Disposition Disposition: Recovery Room Indications Patient with obstruction due to prostate enlargement. Risks and benefits discussed at length. Description of Procedure Patient was consented and brought back to the operating room. Patient was placed under anesthesia in the supine position and moved to the dorsal lithotomy position. Patient was prepped and draped in the regular sterile fashion. A time out was completed. A 30degree Cystoscope was placed into the bladder and the entire bladder was examined. The UO's were identified as well as the bladder neck, trigone, dome, and the other important landmarks. The prostatic urethra and large lobes/adenoma was assessed and the veru and bladder neck identified and area/size was assessed. Significant regrowth with irregular enlargement causing significant obstrction. Significant inflammation in bladder with papillary lesion of the trigone and significant raised lesion of the bladder neck/trigone. Additional inflammed areas in bladder. The resection scope was placed and the fine bipolar loop was selected. The papillary lesion was biopsied with a cold cup biopsy forcep. The raised lesion was resected. Both were sent for pathology. Additional lesions on the posterior wall were then fulgurated. The base of the lesions were fulgurated as well. Attention then went to the prostate. Starting at the 5 and 7 o'clock positions, a channel was created from bladder neck to the veru. The lateral lobes were then resected. Significant regrowth was noted. The channel was able to be resected. The Specimen was removed and sent for analysis. The resection bed and any bleeding areas were fulgurated/cauterized and the entire area inspected. All bleeding was controlled. The bladder was inspected a final time. The bladder was emptied and irrigated. All specimen and debris was removed. The scope was removed with the bladder partially full. A catheter was placed and balloon elevated. This was easily irrigated. The patient was cleaned, aroused from anesthesia, and transferred to the pacu in stable condition having tolerated the procedure well with no complications. I was present and participated in all aspects of the procedure. The patient will be monitored in the PACU until transferred. Plan to monitor post op overnight. Will likely maintain catheter for 7-10 days with removal in office. Can discuss pathology at that time. I attest to the content of the Intraoperative Record and any orders documented therein. Any exceptions are noted below.
[2024-02-07 13:10] LABS: Basophils # (auto) 0.02 K/uL (0.00-0.20); Basophils % (auto) 0.2 %; Eosinophils % (auto) 2.4 %; Hematocrit (blood only) 41.6 % (42.0-52.0); Immature Granulocytes # (auto) 0.02 K/uL (0.01-0.20); Immature Granulocytes % (auto) 0.2 %; Lymphocytes # (auto) 1.62 K/uL (1.20-3.40); Lymphocytes % (auto) 19.3 %; Mean Corpuscular Hemoglobin 30.8 pg (25.0-34.0); Mean Corpuscular Hgb Conc 33.7 g/dL (32.0-36.0); Mean Corpuscular Volume 91.4 fL (80.0-100.0); Mean Platelet Volume 11.2 fL (9.4-12.4); Monocytes # (auto) 0.96 K/uL (0.11-0.59); Monocytes % (auto) 11.4 %; Neutrophils # (auto) 5.58 K/uL (1.40-6.50); Neutrophils % (auto) 66.5 %; Platelet Count 152 K/uL (130-400); RDW Coefficient of Variation 14.1 % (11.5-14.5); RDW Standard Deviation 47.7 fL (36.4-46.3); Red Blood Count 4.55 M/uL (4.70-6.10)
[2024-02-07 13:30] LABS: Albumin Globulin Ratio 1.6 (0.9-2); Albumin Level 3.5 gm/dl (3.4-5.0); Bilirubin,Total 0.5 mg/dl (0.2-1.0); Calcium 9.1 mg/dl (8.6-10.3); Creatinine Clr Calc Pharmacy 63.7 ml/min; Globulin 2.2 gm/dl (2.5-4.0); Potassium 3.9 mmol/L (3.5-5.1); Total Protein 5.7 gm/dl (6.0-8.3)
--- NOTE | 2024-02-07 13:34 | Anesthesiology Progress Note ---
Date of Service February 07, 2024 Anesthesia Post Procedure Vital Signs Vital Signs: Temp Pulse Resp BP Pulse Ox O2 Del Method O2 Flow Rate 02/07/24 13:10 57 L 16 157/52 H 96 Room Air 02/07/24 13:00 54 L 19 164/59 H 100 Oxymask 2 02/07/24 12:50 64 20 152/67 H 100 Oxymask 4 02/07/24 12:42 36.3 C L 62 12 170/61 H 100 Oxymask 6 02/07/24 10:12 36.5 C 54 L 16 166/83 H 97 Room Air Transfer of Care Handoff Completed per policy Notes Mental Status: alert / awake / arousable and participated in evaluation Patient Amnestic to Procedure: Yes Nausea / Vomiting: adequately controlled Pain: adequately controlled Airway Patency, RR, SpO2: stable & adequate BP & HR: stable & adequate Hydration State: stable & adequate Anesthetic Complications: no major complications apparent
[2024-02-08 07:53] VITALS: RESP 18; TEMP 97.9; O2SAT 95
--- NOTE | 2024-02-08 09:02 | Urology Progress Note ---
Date of Service February 08, 2024 Assessment & Plan (1) Hematuria: (2) Benign localized prostatic hyperplasia with lower urinary tract symptoms (LUTS): Plan - POD #1 s/p Transurethral Resection of the Prostate and Cystoscopy with Bladder biopsy, Bladder Fulguration, and Transurethral Resection of Bladder Tumor Small - Feeling well, progressing as expected - Afebrile with stable vitals - Labs-WBC 9.28, hemoglobin 14.2, creatinine 1.16 - 3 way Moon catheter intact, patent and draining yellow urine with CBI on slow drip - CBI clamped @0815, nursing aware - Maintain Moon catheter - Continue supportive care - Will reassess later this morning - Anticipate home with Moon catheter later today presuming urine appropriate and he continues to progress as expected Admission and Anticipated Discharge Date Admission Date: February 07, 2024 Subjective Pt seen at bedside this AM Awake and sitting in bedside chair on arrival No acute distress Overall feeling well Denies f/c/n/v No reported pain Moon intact and draining yellow urine with CBI on slow drip Review of Systems Constitutional: as per Subjective / HPI Genitourinary: + as per Subjective / HPI Physical Exam Constitutional: no acute distress Respiratory: no respiratory distress and no labored breathing Musculoskeletal: Head/Neck/Chest: normocephalic Neurologic: moves all extremities and awake Psychiatric: A+Ox3, euthymic affect Genitourinary: Moon intact w/CBI Results & Data Vital Signs (Past 12 Hours) Vital Signs Temp Pulse Pulse Resp BP Pulse Ox O2 Del Method 02/08/24 07:52 36.6 C 54 L 18 148/50 H 95 Room Air 02/08/24 07:31 53 L 02/08/24 03:20 36.5 C 55 L 16 146/64 H 96 Room Air 02/07/24 22:34 37 C 57 L 18 135/59 L 94 Room Air 02/07/24 22:17 54 L PG Care Time/CCT Total # of Minutes Spent Total Time Spent with Patient: Total time spent is greater than 50% in coordination of care (as documented) at patient's floor/unit and/or counseling patient: Coding Level of Care Code None Diagnoses Hematuria R31.9 Hematuria type: unspecified type Benign localized prostatic hyperplasia with lower urinary tract symptoms (LUTS) N40.1 (1) Hematuria Hematuria type: unspecified type Qualified Code(s): R31.9 - Hematuria, unspecified
[2024-02-08] MEDS ORDERED: MECLIZINE 12.5 MG TAB PO PRN (09:23)
[2024-02-08 09:41] LABS: Basophils # (auto) 0.02 K/uL (0.00-0.20); Basophils % (auto) 0.2 %; Eosinophils # (auto) 0.22 K/uL (0.00-0.50); Eosinophils % (auto) 2.4 %; Hematocrit (blood only) 42.4 % (42.0-52.0); Hemoglobin 14.2 g/dl (14.0-18.0); Immature Granulocytes # (auto) 0.04 K/uL (0.01-0.20); Immature Granulocytes % (auto) 0.4 %; Lymphocytes # (auto) 1.49 K/uL (1.20-3.40); Lymphocytes % (auto) 16.1 %; Mean Corpuscular Hemoglobin 30.5 pg (25.0-34.0); Mean Corpuscular Hgb Conc 33.5 g/dL (32.0-36.0); Monocytes # (auto) 0.86 K/uL (0.11-0.59); Monocytes % (auto) 9.3 %; Neutrophils # (auto) 6.65 K/uL (1.40-6.50); Neutrophils % (auto) 71.6 %; Platelet Count 154 K/uL (130-400); RDW Coefficient of Variation 14.1 % (11.5-14.5); RDW Standard Deviation 47.7 fL (36.4-46.3); Red Blood Count 4.66 M/uL (4.70-6.10); White Blood Count 9.28 K/ul (4.8-10.8)
[2024-02-08 09:54] LABS: BUN Creatinine Ratio 16.4 (10-20); Calcium 9.3 mg/dl (8.6-10.3); Creatinine Clr Calc Pharmacy 49.9 ml/min; Potassium 4.2 mmol/L (3.5-5.1)
[2024-02-08] MEDS: LOSARTAN POTASSIUM 25 MG TAB PO SCH (10:47)
[2024-02-08] MEDS: amLODIPine BESYLATE 5 MG TAB PO SCH (10:47)
[2024-02-08 10:51] VITALS: BP 141/59; PULSE 62
[2024-02-08] MEDS ORDERED: METOPROLOL SUCC 25MG EXT REL TAB PO SCH (21:00)
[2024-02-08] MEDS ORDERED: PARoxetine HCL 10 MG TAB PO SCH (21:00)
[2024-02-08] MEDS ORDERED: ATORVASTATIN 40 MG TAB PO SCH (21:00)
== END 2024-02-08 13:41 | disposition home or self-care (01) ==
LOC: PACUINP 09:30 → ASU 09:30 → EDINP 09:30 → 2N 15:37